=== PATIENT | female | born 1955 | race Hispanic/Latino ===

== ENCOUNTER → 2019-06-29 | Outpatient (CLI) | payer MEDICARE ==
[~2019-06-29] MED LIST: AMYL1CAP63 PO; ASPI-555 PO; BUPR150T8 PO; CALC0.253 PO; CHOL100053 PO; CYAN-35 PO; DENO60DI SQ; ESTRACE; FERR325T22 PO; FLUO40CA49 PO; INSU100I3 SQ; LEVO88TA4 PO; LOSA25TA41 PO; MAGN250T10 PO; NITR0.4T SL; OMEP-50 PO; ONDA4TAB4 PO; POLY17PO4 PO
== END | disposition home or self-care (01) ==
LOC: RAH 08:26
PROVIDERS: ATTEND Internal Medicine
DX: M25.551 Pain in right hip (principal); Z96.651 Presence of right artificial knee joint; Z98.1 Arthrodesis status
CPT/HCPCS: 73502; 73552

== ENCOUNTER 2019-07-14 09:49 | Observation (INO) | payer MEDICARE ==
[~2019-07-14] VITALS: Ht 149.9 cm; Wt 48.1 kg
[2019-07-14 10:09] LABS: BASOPHILS % (AUTO) 0.8 % (0.0-5.0); EOSINOPHILS % (AUTO) 2.3 % (0.0-8.0); HEMATOCRIT 37.2 % (36-48); LYMPHOCYTES % (AUTO) 21.6 % (21.0-51.0); MEAN CORPUSCULAR HGB CONC 33.7 g/dL (32.0-36.0); MEAN CORPUSCULAR VOLUME 91.8 fL (79-99); MONOCYTES % (AUTO) 7.2 % (3.0-13.0); NEUTROPHILS % (AUTO) 68.1 % (40.0-77.0); NUCLEATED RED BLOOD CELLS 0.1 % (0.0-0.19); PLATELET COUNT (AUTO) 220 K/uL (130-400); RED BLOOD CELL COUNT(AUTO) 4.05 MIL/uL (4.00-5.50); RED CELL DISTRIBUTION WIDTH 12.9 % (11.0-15.5); WHITE BLOOD COUNT (AUTO) 6.2 K/uL (4.8-10.8)
[2019-07-14] MEDS ORDERED: ONDANSETRON HCL 4 MG/2 ML VIAL ONE (10:20)
[2019-07-14] MEDS ORDERED: MORPHINE SULFATE 4 MG/1ML SYG ONE (10:21)
[2019-07-14] MEDS ORDERED: SODIUM CHLORIDE 0.9% 500ML 500 ML IV ONE ×2 (10:22→12:25)
[2019-07-14 10:26] LABS: CREATININE 1.1 mg/dL (0.5-1.5); POTASSIUM 3.8 mmol/L (3.5-5.1)
[2019-07-14 10:32] LABS: ALBUMIN 3.4 g/dL (3.5-5.0); BILIRUBIN,TOTAL 0.6 mg/dL (0.2-1.0)
[2019-07-14] MEDS ORDERED: HYDROMORPHONE 1 MG/1 ML AMP ONE (10:53)
[2019-07-14] MEDS ORDERED: KETOROLAC TROMETHAMINE 30MG/ML ONE (10:53)
[2019-07-14] MEDS ORDERED: LIDOCAINE HCL-MPF 1% 2ML VIAL IV PRN (13:00)
[2019-07-14] MEDS ORDERED: ONDANSETRON HCL 4 MG/2 ML VIAL IV PRN (13:00)
[2019-07-14] MEDS ORDERED: DiphenhydrAMINE HCL 50 MG/ML VIAL IV PRN (13:00)
[2019-07-14] MEDS ORDERED: KETOROLAC TROMETHAMINE 30MG/ML IV PRN (13:00)
[2019-07-14] MEDS ORDERED: DEXTROSE 50%-WATER 50 ML DISP.SYRIN IV PRN (13:00)
[2019-07-14] MEDS ORDERED: ONDANSETRON HCL 4 MG/2 ML VIAL IVP PRN (13:00)
[2019-07-14] MEDS ORDERED: SODIUM CHLORIDE 0.9% 1000ML 1,000 ML IV ONE (13:00)
[2019-07-14] MEDS ORDERED: GLUCAGON 1MG KIT 1 MG ML IM PRN (13:00)
[2019-07-14] MEDS ORDERED: MAG HYDROX/AL HYDROX/SIMETH ES 30 ML SUSP UDCUP PO PRN (13:00)
[2019-07-14] MEDS ORDERED: DIPHENHYDRAMINE HCL 25 MG CAPSULE PO PRN (13:00)
[2019-07-14] MEDS ORDERED: HYDROMORPHONE 1 MG/1 ML AMP IVP PRN (13:00)
[2019-07-14] MEDS ORDERED: ACETAMINOPHEN 325 MG TAB PO PRN ×2 (13:00)
[2019-07-14] MEDS ORDERED: SODIUM CHLORIDE 0.9% 1000ML 1,000 ML IV SCH (13:00)
[2019-07-14] MEDS ORDERED: POTASSIUM CHLORIDE 10% ELIXIR 20 MEQ/15 ML UDCUP PO PRN (13:00)
[2019-07-14] MEDS ORDERED: LACTULOSE 20 GM/30 ML UDCUP PO PRN (13:00)
[2019-07-14] MEDS ORDERED: POTASSIUM CHLORIDE 20MEQ/100ML 100 ML IV PRN (13:00)
[2019-07-14] MEDS ORDERED: POTASSIUM CHLORIDE 20 MEQ ERTAB PO PRN (13:00)
[2019-07-14] MEDS ORDERED: POLY17PO4 PO (13:05)
[2019-07-14] MEDS ORDERED: OMEP-50 PO (13:05)
[2019-07-14] MEDS ORDERED: MELO7.5T12 PO (13:05)
[2019-07-14] MEDS ORDERED: ESTRACE (13:05)
[2019-07-14] MEDS ORDERED: INSU100I3 SQ (13:08)
[2019-07-14 17:28] LABS: APPEARANCE,URINE Cloudy (CLEAR); BILIRUBIN,URINE Negative (NEGATIVE); COLOR,URINE Yellow (YELLOW); GLUCOSE, URINE (UA) Negative (NEGATIVE); KETONES,URINE Negative (NEGATIVE); LEUKOCYTE ESTERASE ,URINE Moderate (NEGATIVE); NITRATE,URINE Negative (NEGATIVE); OCCULT BLOOD,URINE Moderate (NEGATIVE); PROTEIN,URINE Negative (NEGATIVE); UROBILINOGEN,URINE 0.2 mg/dL (0.2-1.0)
[2019-07-14] MEDS ORDERED: INSULIN HUMULIN R 100 UNIT/ML 3ML ONE (17:37)
[2019-07-14 17:45] LABS: BACTERIA,URINE Rare /HPF (None Seen)
[2019-07-14] MEDS ORDERED: LIPASE/PROTEASE/AMYLASE 5000/17000/24000 PO SCH ×2 (17:45→18:15)
[2019-07-14] MEDS ORDERED: POLYETHYLENE GLYCOL 3350 17 GM POWD.PACK PO PRN (17:45)
[2019-07-14 17:46] LABS: SQUAMOUS EPITHELIAL CELL,UR Few /HPF (0-2)
[2019-07-14] MEDS ORDERED: CEFTRIAXONE SODIUM 1 GM IVP SCH (18:00)
[2019-07-14] MEDS ORDERED: ACETAMINOPHEN-CODEINE 300/30MG TAB PO PRN (18:00)
[2019-07-14] MEDS ORDERED: CEFTRIAXONE SODIUM 1 GM ONE (19:00)
[2019-07-14 19:35] VITALS: BP 125/78
[2019-07-14] MEDS: PANTOPRAZOLE SODIUM 40 MG TABLET.DR PO SCH (20:58)
[2019-07-14] MEDS: CALCITRIOL 0.25 MCG CAPSULE PO SCH (21:00)
[2019-07-14] MEDS: INSULIN HUMULIN R 100 UNIT/ML 3ML SQ SCH (21:00)
[2019-07-14 23:45] VITALS: BP 115/63
[2019-07-15 04:00] VITALS: BP 147/99
[2019-07-15 06:15] LABS: CREATININE 1.2 mg/dL (0.5-1.5); POTASSIUM 3.8 mmol/L (3.5-5.1)
[2019-07-15] MEDS ORDERED: LEVOTHYROXINE 88 MCG TABLET PO SCH (06:30)
[2019-07-15] MEDS: INSULIN HUMULIN R 100 UNIT/ML 3ML SQ SCH (07:30)
[2019-07-15 08:00] VITALS: BP 143/79
[2019-07-15] MEDS ORDERED: LIPASE/PROTEASE/AMYLASE 5000/17000/24000 PO SCH (08:00)
--- NOTE | 2019-07-15 08:21 | NUR ---
Dr. Messer paged;'for right ureteral calculi 7mm at [facility]
[2019-07-15] MEDS: CALCITRIOL 0.25 MCG CAPSULE PO SCH (08:59)
[2019-07-15] MEDS ORDERED: FLUOXETINE HCL 20 MG CAPSULE PO SCH (09:00)
[2019-07-15] MEDS ORDERED: BUPROPION HCL 150 MG TABLET.SA PO SCH (09:00)
[2019-07-15] MEDS: PANTOPRAZOLE SODIUM 40 MG TABLET.DR PO SCH (09:01)
--- NOTE | 2019-07-15 09:10 | NUR ---
DR. RAYO STATES OKAY TO D/C PT HOME MAKE F/U APPT WITH DR. DEAL, DONT WAIT FOR SAY JUST D/C PT HOME. RENAL STONE WAS SEND TO LAB.
[2019-07-15] MEDS ORDERED: TAMS-1 PO (09:53)
[2019-07-15] MEDS ORDERED: TYL3 PO (09:53)
[2019-07-15] MEDS ORDERED: CEPH500C2 PO (09:53)
[2019-07-15 11:00] VITALS: BP 154/71
--- NOTE | 2019-07-15 13:40 | NUR ---
PATIENT D/C HOME USING TEACH BACK TECHNIQUE RE; FOLLOW UP WITH DR. RAYO IN 2-3 DAYS. CALL TO SET UP AN APPOINTMENT WITH DR. DEAL IN 1-2 WEEKS. [phone] IF PAINFULS URINATION, CALL YOUR PRIMARY DOCTOR. IF URINATING BLOOD OR SEVER PAIN THAT DOES NOT RESOLVE WITH PAIN MEDICATION CALL 911 OR COME TO THE EMERGENCY ROOM. FINISH FULL COURSE OF ANTIBIOTICS TO PREVENT SUPER INFECTION. FOLLOW UP FOR RESULTS OF KIDNEY STONE THAT WAS COLLECTED AT [facility], AT DR. RAYO'S OFFICE AT THE DATE OF THE APPOINTMENT. IV OUT, INTACT, AAOX3, DENIES ANY PAIN OR DISCOMFORT, PATIENT WILL FOLLOW UP WITH DR. RAYO FOR RENAL STONE RESULTS. PRESCRIPTION GIVEN TO PATIENT FOR ANTIBIOTICS AND FLOMAX AND PAIN MED.
== END 2019-07-15 14:00 | disposition home or self-care (01) ==
LOC: EDH 09:49 → EDHIP 12:18 → 4BH 19:35
PROVIDERS: ADMIT Internal Medicine; ATTEND Internal Medicine
DX: N13.2 Hydronephrosis with renal and ureteral calculous obstruction (principal); G25.81 Restless legs syndrome; E10.43 Type 1 diabetes mellitus with diabetic autonomic (poly)neuropathy; E78.2 Mixed hyperlipidemia; F32.1 Major depressive disorder, single episode, moderate; H40.10X1 Unspecified open-angle glaucoma, mild stage; I25.10 Atherosclerotic heart disease of native coronary artery without angina pectoris; I25.2 Old myocardial infarction; K31.84 Gastroparesis; K21.9 Gastro-esophageal reflux disease without esophagitis; K44.9 Diaphragmatic hernia without obstruction or gangrene; K86.89 Other specified diseases of pancreas; M21.372 Foot drop, left foot; K56.609 Unspecified intestinal obstruction, unspecified as to partial versus complete obstruction; E31.21 Multiple endocrine neoplasia [MEN] type I; Z87.442 Personal history of urinary calculi; Z90.411 Acquired partial absence of pancreas; Z90.710 Acquired absence of both cervix and uterus; Z96.651 Presence of right artificial knee joint; Z96.41 Presence of insulin pump (external) (internal); Z90.49 Acquired absence of other specified parts of digestive tract; Z79.82 Long term (current) use of aspirin; Z79.890 Hormone replacement therapy; Z79.899 Other long term (current) drug therapy
CPT/HCPCS: 36415 ×2; 74176; 80048; 80053; 81001; 82360; 82948 ×3; 83690; 84484; 85025; 93005; 99284; G0378 ×25; J0696; J1170; J1815; J1885; J2270; J2405; J7030; J7040 ×2

== ENCOUNTER 2019-08-04 01:16 | Emergency (ER) | payer MEDICARE ==
[~2019-08-04 01:16] MED LIST changes: +CEPH500C2 PO; -INSU100I3 SQ; -ONDA4TAB4 PO; +TAMS-1 PO; +TYL3 PO
[2019-08-04 02:21] LABS: BILIRUBIN,URINE Negative (NEGATIVE); COLOR,URINE Yellow (YELLOW); GLUCOSE, URINE (UA) Negative (NEGATIVE); KETONES,URINE Negative (NEGATIVE); LEUKOCYTE ESTERASE ,URINE Trace (NEGATIVE); NITRATE,URINE Negative (NEGATIVE); OCCULT BLOOD,URINE Negative (NEGATIVE); PROTEIN,URINE Negative (NEGATIVE); UROBILINOGEN,URINE 0.2 mg/dL (0.2-1.0)
[2019-08-04 02:25] LABS: APPEARANCE,URINE SLIGHTLY CLOUDY (CLEAR)
[2019-08-04 02:41] LABS: BACTERIA,URINE None Seen /HPF (None Seen); RBC,URINE None Seen /HPF (0-1); WBC,URINE 0-1 /HPF (0-1)
[2019-08-04 02:42] LABS: CALCIUM OXALATE CRYSTALS,UR Moderate /LPF (None Seen); SQUAMOUS EPITHELIAL CELL,UR Rare /HPF (0-2)
[2019-08-04 02:46] LABS: BASOPHILS % (AUTO) 1.7 % (0.0-5.0); EOSINOPHILS % (AUTO) 3.6 % (0.0-8.0); HEMATOCRIT 38.5 % (36-48); LYMPHOCYTES % (AUTO) 23.1 % (21.0-51.0); MEAN CORPUSCULAR HGB CONC 33.6 g/dL (32.0-36.0); MEAN CORPUSCULAR VOLUME 92.4 fL (79-99); MONOCYTES % (AUTO) 6.5 % (3.0-13.0); NEUTROPHILS % (AUTO) 65.1 % (40.0-77.0); PLATELET COUNT (AUTO) 208 K/uL (130-400); RED BLOOD CELL COUNT(AUTO) 4.17 MIL/uL (4.00-5.50); RED CELL DISTRIBUTION WIDTH 12.7 % (11.0-15.5); WHITE BLOOD COUNT (AUTO) 5.9 K/uL (4.8-10.8)
[2019-08-04] MEDS ORDERED: KETOROLAC TROMETHAMINE 30MG/ML ONE (02:53)
[2019-08-04 02:59] LABS: ALBUMIN 3.9 g/dL (3.5-5.0); BILIRUBIN,TOTAL 0.4 mg/dL (0.2-1.0); CREATININE 1.2 mg/dL (0.5-1.5); TOTAL PROTEIN, SERUM 7.1 g/dL (6.0-8.3)
[2019-08-04 03:04] LABS: POTASSIUM 3.6 mmol/L (3.5-5.1)
[2019-08-04 03:09] LABS: INR 0.89 (0.85-1.15); PROTHROMBIN TIME 9.4 SEC (9.6-11.6)
[2019-08-04] MEDS ORDERED: METHYLPREDNISOLONE SOD SUCC 125MG/2ML VIAL ONE (03:21)
== END 2019-08-04 04:20 | disposition home or self-care (01) ==
LOC: EDH 01:16
DX: M79.651 Pain in right thigh (principal); E10.649 Type 1 diabetes mellitus with hypoglycemia without coma; I10 Essential (primary) hypertension; Z87.442 Personal history of urinary calculi; Z85.07 Personal history of malignant neoplasm of pancreas
CPT/HCPCS: 36415; 71045; 72100; 73502; 80053; 81001; 82550; 82948; 84484; 85025; 85610; 85730; 93005; 93971; 96374; 96375; 99285; J1885; J2930

== ENCOUNTER → 2019-09-18 | Outpatient (CLI) | payer MEDICARE | END | disposition home or self-care (01) | LOC: RAH 12:58 | PROVIDERS: ATTEND Urology | DX: N13.2 Hydronephrosis with renal and ureteral calculous obstruction (principal) | CPT/HCPCS: 74176 ==

== ENCOUNTER → 2019-09-26 | Outpatient (CLI) | payer MEDICARE ==
[~2019-09-26] MED LIST changes: +OMEP-298 PO; -OMEP-50 PO
== END | disposition home or self-care (01) ==
LOC: RAH 15:10
PROVIDERS: ATTEND Internal Medicine
DX: M54.5 Low back pain (principal); M79.651 Pain in right thigh
CPT/HCPCS: 72148; 73718

== ENCOUNTER → 2019-10-03 | Outpatient (CLI) | payer MEDICARE | END | disposition home or self-care (01) | LOC: RAH 14:40 | PROVIDERS: ATTEND Internal Medicine | DX: N20.0 Calculus of kidney (principal) | CPT/HCPCS: 74018; 76100 ==

== ENCOUNTER → 2019-10-13 | Outpatient (CLI) | payer MEDICARE | END | disposition home or self-care (01) | LOC: RAH 10:34 | PROVIDERS: ATTEND Internal Medicine | DX: N20.0 Calculus of kidney (principal) | CPT/HCPCS: 74018; 76100 ==

== ENCOUNTER 2019-10-31 05:53 | Day surgery (SDC) | payer MEDICARE ==
[2019-10-30 11:39] VITALS: BP 168/85
[2019-10-30 12:25] LABS: HEMATOCRIT 36.6 % (36-48); MEAN CORPUSCULAR HGB CONC 31.4 g/dL (32.0-36.0); MEAN CORPUSCULAR VOLUME 92.4 fL (79-99); PLATELET COUNT (AUTO) 222 K/uL (130-400); RED BLOOD CELL COUNT(AUTO) 3.96 MIL/uL (4.00-5.50); RED CELL DISTRIBUTION WIDTH 12.3 % (11.0-15.5)
[2019-10-30 12:29] LABS: APPEARANCE,URINE Clear (CLEAR); BILIRUBIN,URINE Negative (NEGATIVE); COLOR,URINE Yellow (YELLOW); GLUCOSE, URINE (UA) Negative (NEGATIVE); KETONES,URINE Negative (NEGATIVE); LEUKOCYTE ESTERASE ,URINE Small (NEGATIVE); NITRATE,URINE Negative (NEGATIVE); OCCULT BLOOD,URINE Negative (NEGATIVE); PH,URINE 5.5 (5.0-8.0); PROTEIN,URINE Trace mg/dL (NEGATIVE); UROBILINOGEN,URINE 0.2 mg/dL (0.2-1.0)
[2019-10-30 12:30] LABS: BACTERIA,URINE Rare /HPF (None Seen); RBC,URINE 0-1 /HPF (0-1); SQUAMOUS EPITHELIAL CELL,UR Rare /HPF (0-2)
[2019-10-30 12:41] LABS: CREATININE 1.1 mg/dL (0.5-1.5); INR 0.95 (0.85-1.15); PARTIAL THROMBOPLASTIN TIME 25.7 SEC (26.3-35.5); POTASSIUM 3.6 mmol/L (3.5-5.1)
--- NOTE | 2019-10-30 14:15 | NUR ---
RE: ABNORMAL URINALYSIS FAXED ABNORMAL URINALYSIS RESULTS TO DR DEAL'S OFFICE, RENNY VELASCO.
[~2019-10-31] VITALS: Ht 152.4 cm; Wt 46.4 kg
[2019-10-31] VITALS (19 sets, daily range): BP systolic 137–188; BP diastolic 60–106
[~2019-10-31 05:53] MED LIST changes: +AMYL1CAP61 PO; -AMYL1CAP63 PO; -ASPI-555 PO; -BUPR150T8 PO; +CEFAZOLIN SODIUM 1 GM VIAL IVP SCH; -CEPH500C2 PO; +CHOL100046 PO; -CHOL100053 PO; -CYAN-35 PO; -DENO60DI SQ; -ESTRACE; -FERR325T22 PO; +FISH1CAP20 PO; +FOLI0.8C PO; +LACTATED RINGERS 1000ML 1,000 ML IV SCH; -MAGN250T10 PO; -NITR0.4T SL; -OMEP-298 PO; +OMEP20CA12 PO; -POLY17PO4 PO; +PREG25 PO; -TYL3 PO; +calcium PO; +vitamin b12 PO
[2019-10-31] MEDS ORDERED: SCOPOLAMINE HYDROBROMIDE 1 EACH ADH..PATCH TD ONE (06:47)
[2019-10-31] MEDS ORDERED: SODIUM CHLORIDE 0.9% 1000ML 1,000 ML IV ONE (06:51)
[2019-10-31] MEDS ORDERED: NEOSTIGMINE 5MG/5ML SYR IV ONE (06:54)
[2019-10-31] MEDS ORDERED: LIDOCAINE PF 2% 5ML ABBOJECT ONE (06:54)
[2019-10-31] MEDS ORDERED: GLYCOPYRROLATE 1 MG/5 ML SYRINGE ONE (06:54)
[2019-10-31] MEDS ORDERED: SUCCINYLCHOLINE 200MG/10ML SYR ONE (06:54)
[2019-10-31] MEDS ORDERED: ONDANSETRON HCL 4 MG/2 ML VIAL ONE (06:54)
[2019-10-31] MEDS ORDERED: DEXAMETHASONE SOD PHOSPHATE 10MG/ML 1ML VIAL ONE (06:54)
[2019-10-31] MEDS ORDERED: PROPOFOL 10 MG/ML 20ML VIAL IV ONE (06:54)
[2019-10-31] MEDS ORDERED: FENTANYL CITRATE PF 50 MCG/1 ML 2ML VIAL ONE (06:55)
[2019-10-31] MEDS ORDERED: ROCURONIUM 10MG/1ML SYR 10 MG/ML ML ONE (06:55)
== END 2019-10-31 10:10 | disposition home or self-care (01) ==
LOC: DAH 05:53
PROVIDERS: ATTEND Urology
DX: N20.0 Calculus of kidney (principal); I10 Essential (primary) hypertension; K21.9 Gastro-esophageal reflux disease without esophagitis; E03.9 Hypothyroidism, unspecified; F32.9 Major depressive disorder, single episode, unspecified; Z79.84 Long term (current) use of oral hypoglycemic drugs; Z79.899 Other long term (current) drug therapy; Z90.710 Acquired absence of both cervix and uterus; Z98.890 Other specified postprocedural states; Z85.07 Personal history of malignant neoplasm of pancreas; Z82.49 Family history of ischemic heart disease and other diseases of the circulatory system; Z83.3 Family history of diabetes mellitus; Z82.3 Family history of stroke
CPT/HCPCS: 36415; 50590; 71046; 74018; 80048; 81001; 82948 ×2; 85027; 85610; 85730; 87088; 93005; A4215; A4221; A4222; A4223; A4663; J0330; J0690; J1100; J2001; J2405; J2704; J2710; J3490; J7030; J3010; J7120

== ENCOUNTER → 2019-11-14 | Outpatient (CLI) | payer MEDICARE ==
[~2019-11-14] MED LIST changes: -CEFAZOLIN SODIUM 1 GM VIAL IVP SCH; -LACTATED RINGERS 1000ML 1,000 ML IV SCH
== END | disposition home or self-care (01) ==
LOC: RAH 14:02
PROVIDERS: ATTEND Urology
DX: N28.89 Other specified disorders of kidney and ureter (principal); K59.00 Constipation, unspecified
CPT/HCPCS: 74018; 76100

== ENCOUNTER 2020-09-18 01:44 | Observation (INO) | payer MEDICARE ==
[2020-09-18] VITALS (19 sets, daily range): BP systolic 100–135; BP diastolic 51–79
[~2020-09-18] VITALS: Ht 149.9 cm; Wt 44.0 kg
[2020-09-18] MEDS ORDERED: HYDROMORPHONE 1 MG/1 ML AMP ONE ×2 (02:36→04:51)
[2020-09-18] MEDS ORDERED: ONDANSETRON HCL 4 MG/2 ML VIAL ONE ×2 (02:37→12:25)
[2020-09-18 02:53] LABS: BASOPHILS % (AUTO) 0.4 % (0.0-5.0); EOSINOPHILS % (AUTO) 1.3 % (0.0-8.0); HEMATOCRIT 37.7 % (36-48); LYMPHOCYTES % (AUTO) 16.5 % (21.0-51.0); MEAN CORPUSCULAR HGB CONC 32.1 g/dL (32.0-36.0); MEAN CORPUSCULAR VOLUME 90.4 fL (79-99); MONOCYTES % (AUTO) 5.7 % (3.0-13.0); NEUTROPHILS % (AUTO) 75.7 % (40.0-77.0); PLATELET COUNT (AUTO) 225 K/uL (130-400); RED BLOOD CELL COUNT(AUTO) 4.17 MIL/uL (4.00-5.50); RED CELL DISTRIBUTION WIDTH 12.2 % (11.0-15.5); WHITE BLOOD COUNT (AUTO) 11.3 K/uL (4.8-10.8)
[2020-09-18 02:56] LABS: CREATININE 1.3 mg/dL (0.5-1.5); CRP QUANTITATIVE 3.5 mg/L (0.00-9.0); POTASSIUM 3.5 mmol/L (3.5-5.1)
[2020-09-18] MEDS ORDERED: TAMSULOSIN HCL 0.4 MG CAP.ER.24H ONE ×2 (02:56→08:49)
[2020-09-18] MEDS ORDERED: PROCHLORPERAZINE EDISYLATE 10 MG/2 ML VIAL ONE (04:50)
[2020-09-18] MEDS ORDERED: SODIUM CHLORIDE 0.9% 50 ML IV ONE (04:51)
[2020-09-18] MEDS ORDERED: GLUCAGON 1MG KIT 1 MG ML IM PRN ×2 (06:30→07:45)
[2020-09-18] MEDS ORDERED: ONDANSETRON HCL 4 MG/2 ML VIAL IVP PRN (06:30)
[2020-09-18] MEDS ORDERED: SODIUM CHLORIDE 0.9% 1000ML 1,000 ML IV SCH ×2 (06:30→07:30)
[2020-09-18] MEDS ORDERED: DEXTROSE 50%-WATER 50 ML DISP.SYRIN IV PRN ×2 (06:30→07:45)
[2020-09-18] MEDS ORDERED: PROCHLORPERAZINE EDISYLATE 10 MG/2 ML VIAL IV PRN (06:30)
[2020-09-18] MEDS ORDERED: MORPHINE SULFATE 4 MG/1ML SYG IVP PRN (06:30)
[2020-09-18] MEDS ORDERED: ONDANSETRON HCL 4 MG/2 ML VIAL IV PRN (07:30)
[2020-09-18] MEDS ORDERED: ACETAMINOPHEN 325 MG TAB PO PRN ×2 (07:30)
[2020-09-18] MEDS ORDERED: DIPHENHYDRAMINE HCL 25 MG CAPSULE PO PRN (07:30)
[2020-09-18] MEDS ORDERED: MAG HYDROX/AL HYDROX/SIMETH ES 30 ML SUSP UDCUP PO PRN (07:30)
[2020-09-18] MEDS ORDERED: LACTULOSE 20 GM/30 ML UDCUP PO PRN (07:30)
[2020-09-18] MEDS: INSULIN R PO SS1 SQ SCH ×3 (07:30→16:30)
[2020-09-18] MEDS ORDERED: ACETAMINOPHEN-CODEINE 300/30MG TAB PO PRN ×2 (07:30)
[2020-09-18] MEDS ORDERED: HUMALOG PO SS1 SQ SCH (07:30)
[2020-09-18] MEDS ORDERED: DiphenhydrAMINE HCL 50 MG/ML VIAL IV PRN (07:30)
[2020-09-18] MEDS ORDERED: LIDOCAINE HCL-MPF 1% 2ML VIAL IM PRN (07:45)
[2020-09-18] MEDS ORDERED: POTASSIUM CHLORIDE 10MEQ/100ML 100 ML IV PRN (07:45)
[2020-09-18] MEDS ORDERED: POTASSIUM CHLORIDE 20MEQ/100ML 100 ML IV PRN (07:45)
[2020-09-18] MEDS ORDERED: POTASSIUM CHLORIDE 20 MEQ ERTAB PO PRN (07:45)
[2020-09-18] MEDS ORDERED: POTASSIUM CHLORIDE 10% ELIXIR 20 MEQ/15 ML UDCUP PO PRN (07:45)
[2020-09-18] MEDS ORDERED: LIPASE/PROTEASE/AMYLASE 5000/17000/24000 PO SCH (07:45)
[2020-09-18] MEDS ORDERED: OMEP20CA12 PO (08:44)
[2020-09-18] MEDS ORDERED: PREG25 PO (08:44)
[2020-09-18] MEDS ORDERED: PANTOPRAZOLE SODIUM 40 MG TABLET.DR ONE (08:49)
[2020-09-18] MEDS ORDERED: FOLIC ACID 1 MG TABLET ONE (08:49)
[2020-09-18] MEDS ORDERED: PREGABALIN 25 MG CAP ONE (08:50)
[2020-09-18] MEDS ORDERED: FAMOTIDINE/PF 20 MG/2 ML VIAL IV ONE (08:50)
[2020-09-18] MEDS ORDERED: NITR0.4T SL (08:52)
[2020-09-18] MEDS ORDERED: ESTR42.53 VG (08:52)
[2020-09-18] MEDS ORDERED: DENO60DI SQ (08:52)
[2020-09-18] MEDS ORDERED: AMYL1CAP61 PO (08:52)
[2020-09-18] MEDS ORDERED: FERR325T22 PO (08:52)
[2020-09-18] MEDS ORDERED: POLY17PO4 PO (08:52)
[2020-09-18] MEDS ORDERED: AEC81 PO (08:52)
[2020-09-18] MEDS ORDERED: CALCITRIOL 0.25 MCG CAPSULE PO SCH (09:00)
[2020-09-18] MEDS ORDERED: TAMSULOSIN HCL 0.4 MG CAP.ER.24H PO SCH ×2 (09:00)
[2020-09-18] MEDS ORDERED: **HM** VIT D3 25MCG PO SCH (09:00)
[2020-09-18] MEDS ORDERED: PANTOPRAZOLE SODIUM 40 MG TABLET.DR PO SCH (09:00)
[2020-09-18] MEDS ORDERED: FOLIC ACID 1 MG TABLET PO SCH (09:00)
[2020-09-18] MEDS ORDERED: LEVOTHYROXINE 88 MCG TABLET PO SCH (09:00)
[2020-09-18] MEDS ORDERED: FAMOTIDINE/PF 20 MG/2 ML VIAL IV SCH (09:00)
[2020-09-18] MEDS ORDERED: PREGABALIN 25 MG CAP PO SCH (09:00)
[2020-09-18] MEDS: FLUOXETINE HCL 20 MG CAPSULE PO SCH (09:00)
[2020-09-18] MEDS ORDERED: INSULIN HUMULIN R 100 UNIT/ML 3ML SQ SCH (11:30)
[2020-09-18] MEDS ORDERED: MORPHINE SULFATE 4 MG/1ML SYG IV PRN (12:15)
[2020-09-18] MEDS ORDERED: DEXAMETHASONE SOD PHOSPHATE 10MG/ML 1ML VIAL ONE (12:24)
[2020-09-18] MEDS ORDERED: SUCCINYLCHOLINE 200MG/10ML SYR ONE (12:24)
[2020-09-18] MEDS ORDERED: LIDOCAINE PF 2% 5ML ABBOJECT ONE (12:24)
[2020-09-18] MEDS ORDERED: NEOSTIGMINE 5MG/5ML SYR IV ONE (12:25)
[2020-09-18] MEDS ORDERED: ROCURONIUM 10MG/1ML SYR 10 MG/ML ML ONE (12:25)
[2020-09-18] MEDS ORDERED: MIDAZOLAM HCL 1 MG/ML 2ML VIAL ONE (12:25)
[2020-09-18] MEDS ORDERED: GLYCOPYRROLATE 1 MG/5 ML SYRINGE ONE (12:25)
[2020-09-18] MEDS ORDERED: PROPOFOL 10 MG/ML 20ML VIAL IV ONE (12:25)
[2020-09-18] MEDS ORDERED: FENTANYL CITRATE PF 50 MCG/1 ML 2ML VIAL ONE (12:26)
[2020-09-18] MEDS: CEFTRIAXONE SODIUM 1 GM IVP SCH ×2 (12:45→14:00)
[2020-09-18] MEDS ORDERED: IOHEXOL-350 50ML VIAL IV ONE (13:23)
--- NOTE | 2020-09-18 13:54 | NUR ---
ABRAN LOPEZ Spoke with patient's HUSBAD DIAMOND FERRARO ([phone]). As per Mr Ferraro, patient lives at home with him, was independent prior to admission, has a walker with no other DME or home services. Mr Ferraro feels safe for patient to be discharged home. Mr Ferraro to transport patient home via private vehicle. CM to follow up. Addendum: 09/18/20 at 1356 by SIMA VEGA Amended: Links added.
[2020-09-18] MEDS ORDERED: ACET1TAB25 PO (17:11)
[2020-09-18] MEDS ORDERED: TAMS-1 PO (17:11)
[2020-09-18] MEDS ORDERED: CEPH500C2 PO (17:11)
[2020-09-18] MEDS ORDERED: INSULIN PUMP INJ (17:22)
--- NOTE | 2020-09-18 18:11 | NUR ---
DISCHARGE DISCHARGE INSTRUCTIONS GIVEN TO PATIENT,VERBALIZED UNDERSTANDING. IV REMOVED. TELEPAK DISCONTINUED.
== END 2020-09-18 18:11 | disposition home or self-care (01) ==
LOC: EDH 01:44 → EDHIP 06:05 → 4CH 10:35
PROVIDERS: ADMIT Internal Medicine; ATTEND Internal Medicine
DX: N13.2 Hydronephrosis with renal and ureteral calculous obstruction (principal); Z20.828 Contact with and (suspected) exposure to other viral communicable diseases; K44.9 Diaphragmatic hernia without obstruction or gangrene; K21.9 Gastro-esophageal reflux disease without esophagitis; E10.43 Type 1 diabetes mellitus with diabetic autonomic (poly)neuropathy; K31.84 Gastroparesis; F32.1 Major depressive disorder, single episode, moderate; G25.81 Restless legs syndrome; H40.10X1 Unspecified open-angle glaucoma, mild stage; I10 Essential (primary) hypertension; I25.10 Atherosclerotic heart disease of native coronary artery without angina pectoris; I25.2 Old myocardial infarction; M21.372 Foot drop, left foot; Z79.4 Long term (current) use of insulin; Z79.82 Long term (current) use of aspirin; Z79.890 Hormone replacement therapy; Z79.899 Other long term (current) drug therapy; Z87.442 Personal history of urinary calculi; Z90.411 Acquired partial absence of pancreas; Z90.710 Acquired absence of both cervix and uterus; Z96.651 Presence of right artificial knee joint; Z85.07 Personal history of malignant neoplasm of pancreas
CPT/HCPCS: 36415; 52356; 74018; 74150; 74176; 80048; 82360; 82948 ×2; 85025; 86140; 87426; 93005; 99285; A4354; A4358; A6207; C1758; C1769 ×2; C2617; G0378 ×12; J0330; J0696; J0780; J1100; J1170 ×2; J2001; J2250; J2405 ×2; J2704; J2710; J3010; J3490 ×2; J7030; U0003; Q9967

== ENCOUNTER 2021-04-02 11:39 | Emergency (ER) | payer MEDICARE ==
[~2021-04-02] VITALS: Ht 149.9 cm; Wt 42.6 kg
[~2021-04-02 11:39] MED LIST changes: +ACET1TAB25 PO; +AEC81 PO; +CEPH500C2 PO; -CHOL100046 PO; +DENO60DI SQ; +ESTR42.53 VG; +FERR325T22 PO; -FISH1CAP20 PO; -FOLI0.8C PO; +INSULIN PUMP INJ; +NITR0.4T SL; +POLY17PO4 PO; -PREG25 PO; -calcium PO
[2021-04-02 12:10] VITALS: BP 140/93
[2021-04-02 12:13] LABS: BILIRUBIN,URINE Negative (NEGATIVE); COLOR,URINE Yellow (YELLOW); GLUCOSE, URINE (UA) Negative (NEGATIVE); KETONES,URINE Negative (NEGATIVE); LEUKOCYTE ESTERASE ,URINE Negative (NEGATIVE); NITRATE,URINE Negative (NEGATIVE); OCCULT BLOOD,URINE Small (NEGATIVE); PROTEIN,URINE Trace mg/dL (NEGATIVE); UROBILINOGEN,URINE 0.2 mg/dL (0.2-1.0)
[2021-04-02 12:16] LABS: APPEARANCE,URINE SLIGHTLY CLOUDY (CLEAR)
[2021-04-02 12:22] LABS: BACTERIA,URINE None Seen /HPF (None Seen); WBC,URINE 0-1 /HPF (0-1)
[2021-04-02] MEDS ORDERED: KETOROLAC 15MG/ML VIAL (15MG/ML) IV SCH (12:30)
[2021-04-02] MEDS ORDERED: 0.9%NACL 1000ML 1,000 ML IV SCH (12:30)
[2021-04-02 12:43] LABS: BASOPHILS % (AUTO) 0.6 % (0.0-5.0); EOSINOPHILS % (AUTO) 1.9 % (0.0-8.0); HEMATOCRIT 32.6 % (36-48); LYMPHOCYTES % (AUTO) 13.7 % (21.0-51.0); MEAN CORPUSCULAR HEMOGLOBIN 28.6 pg (27.0-33.0); MEAN CORPUSCULAR HGB CONC 31.6 g/dL (32.0-36.0); MEAN CORPUSCULAR VOLUME 90.6 fL (79-99); MONOCYTES % (AUTO) 8.7 % (3.0-13.0); NEUTROPHILS % (AUTO) 74.8 % (40.0-77.0); PLATELET COUNT (AUTO) 212 K/uL (130-400); RED CELL DISTRIBUTION WIDTH 13.8 % (11.0-15.5); WHITE BLOOD COUNT (AUTO) 6.8 K/uL (4.8-10.8)
[2021-04-02] MEDS ORDERED: 0.9%NACL 1000ML 1,000 ML IV ONE (12:43)
[2021-04-02 12:55] LABS: CREATININE 1.1 mg/dL (0.5-1.5); POTASSIUM 3.9 mmol/L (3.5-5.1)
[2021-04-02 12:59] LABS: ALBUMIN 3.1 g/dL (3.5-5.0); BILIRUBIN,TOTAL 0.4 mg/dL (0.2-1.0); TOTAL PROTEIN, SERUM 6.4 g/dL (6.0-8.3)
[2021-04-02 13:17] VITALS: BP 140/68
[2021-04-02] MEDS ORDERED: ONDANSETRON 4MG INJ IVP ONE (15:15)
[2021-04-02] MEDS ORDERED: MORPHINE 4 MG SYG IM ONE (15:15)
[2021-04-02 15:46] VITALS: BP 122/55
[2021-04-02] MEDS ORDERED: CEPH250C2 PO (15:56)
[2021-04-02] MEDS ORDERED: ACET1TAB25 PO (15:56)
[2021-04-02] MEDS ORDERED: TAMS-1 PO (15:56)
[2021-04-02] MEDS ORDERED: TAMSULOSIN HCL 0.4 MG CAP.ER.24H PO SCH (16:00)
[2021-04-02 16:40] VITALS: BP 129/81
== END 2021-04-02 16:41 | disposition home or self-care (01) ==
LOC: EDH 11:39
DX: N20.9 Urinary calculus, unspecified (principal); E11.9 Type 2 diabetes mellitus without complications; E86.0 Dehydration; Z79.82 Long term (current) use of aspirin; Z87.442 Personal history of urinary calculi; Z98.890 Other specified postprocedural states
CPT/HCPCS: 36415; 74176; 80053; 81001; 83690; 85025; 96361; 96374; 96375; 99285; J1885; J2405; J7030

== ENCOUNTER → 2022-01-08 | Outpatient (CLI) | payer MEDICARE ==
[~2022-01-08] MED LIST changes: +CEPH250C2 PO
== END | disposition home or self-care (01) ==
LOC: RAH 16:30
PROVIDERS: ATTEND Internal Medicine
DX: G51.8 Other disorders of facial nerve (principal); R68.84 Jaw pain
CPT/HCPCS: 70100; 70150

== ENCOUNTER → 2022-12-01 | Outpatient (CLI) | payer MEDICARE ==
[~2022-12-01] MED LIST changes: +ACET-2079 PO; -ACET1TAB25 PO
[2022-12-02 13:35] LABS: BASOPHILS % (AUTO) 0.6 % (0.0-5.0); EOSINOPHILS % (AUTO) 2.5 % (0.0-8.0); HEMATOCRIT 35.1 % (36-48); LYMPHOCYTES % (AUTO) 26.1 % (21.0-51.0); MEAN CORPUSCULAR HEMOGLOBIN 29.8 pg (27.0-33.0); MEAN CORPUSCULAR HGB CONC 31.3 g/dL (32.0-36.0); MEAN CORPUSCULAR VOLUME 95.1 fL (79-99); MONOCYTES % (AUTO) 8.3 % (3.0-13.0); NEUTROPHILS % (AUTO) 62.3 % (40.0-77.0); PLATELET COUNT (AUTO) 198 K/uL (130-400); RED BLOOD CELL COUNT(AUTO) 3.69 MIL/uL (4.00-5.50); RED CELL DISTRIBUTION WIDTH 12.8 % (11.0-15.5); WHITE BLOOD COUNT (AUTO) 5.2 K/uL (4.8-10.8)
[2022-12-02 13:47] LABS: CREATININE 0.9 mg/dL (0.5-1.5); POTASSIUM 3.4 mmol/L (3.5-5.1); TOTAL PROTEIN, SERUM 6.2 g/dL (6.0-8.3)
== END | disposition home or self-care (01) ==
LOC: LAB 10:35
PROVIDERS: ATTEND Internal Medicine Cardiovascular Disease
DX: E11.59 Type 2 diabetes mellitus with other circulatory complications (principal); R42 Dizziness and giddiness
CPT/HCPCS: 36415; 80053; 80061; 85025

== ENCOUNTER → 2022-12-30 | Outpatient (CLI) | payer OTHER | END | disposition home or self-care (01) | LOC: RAH 12:49 | PROVIDERS: ATTEND Internal Medicine Cardiovascular Disease | DX: Z13.6 Encounter for screening for cardiovascular disorders (principal); R93.1 Abnormal findings on diagnostic imaging of heart and coronary circulation | CPT/HCPCS: 75571 ==

== ENCOUNTER 2023-06-25 02:09 | Emergency (ER) | payer MEDICARE ==
[~2023-06-25] VITALS: Ht 149.9 cm; Wt 44.5 kg
[2023-06-25 02:11] VITALS: BP 172/82
[2023-06-25] MEDS ORDERED: ACETAMINOPHEN 500 MG TABLET ONE (02:40)
[2023-06-25] MEDS ORDERED: 0.9%NACL 1000ML 1,000 ML IV ONE (02:40)
[2023-06-25] MEDS ORDERED: 0.9%NACL 1000ML 1,000 ML IV STA (02:42)
[2023-06-25] MEDS ORDERED: ACETAMINOPHEN 500 MG TABLET PO STA (02:42)
[2023-06-25 02:46] LABS: BASOPHILS # (AUTO) 0.03 K/uL (0.00-0.20); BASOPHILS % (AUTO) 0.4 % (0.0-5.0); EOSINOPHILS # (AUTO) 0.44 K/uL (0.00-0.70); EOSINOPHILS % (AUTO) 5.3 % (0.0-8.0); HEMATOCRIT 33.4 % (36-48); IMMATURE GRANULOCYTE ABSOLUTE 0.02 K/uL (0-1); LYMPHOCYTES # (AUTO) 1.2 K/uL (1.0-4.8); LYMPHOCYTES % (AUTO) 14.1 % (21.0-51.0); MEAN CORPUSCULAR HEMOGLOBIN 28.1 pg (27.0-33.0); MEAN CORPUSCULAR HGB CONC 31.7 g/dL (32.0-36.0); MEAN CORPUSCULAR VOLUME 88.6 fL (79-99); MONOCYTES # (AUTO) 0.7 K/uL (0.1-1.0); PLATELET COUNT (AUTO) 177 K/uL (130-400); RED BLOOD CELL COUNT(AUTO) 3.77 MIL/uL (4.00-5.50); RED CELL DISTRIBUTION WIDTH 13.6 % (11.0-15.5); WHITE BLOOD COUNT (AUTO) 8.4 K/uL (4.8-10.8)
[2023-06-25] MEDS ORDERED: MORPHINE 4 MG SYG ONE (02:59)
[2023-06-25] MEDS ORDERED: ACETAMINOPHEN 500 MG TABLET PO ONE (03:00)
[2023-06-25] MEDS ORDERED: ONDANSETRON 4MG INJ IVP ONE (03:00)
[2023-06-25] MEDS ORDERED: MORPHINE 4 MG SYG IVP ONE (03:00)
[2023-06-25 03:01] LABS: ALBUMIN 3.4 g/dL (3.5-5.0); BILIRUBIN,TOTAL 0.5 mg/dL (0.2-1.0); CREATININE 1.9 mg/dL (0.5-1.5); POTASSIUM 3.9 mmol/L (3.5-5.1); TOTAL PROTEIN, SERUM 6.9 g/dL (6.0-8.3)
[2023-06-25 03:47] VITALS: TEMP 98.7
[2023-06-25 03:58] LABS: APPEARANCE,URINE CLEAR (CLEAR); BILIRUBIN,URINE NEGATIVE (NEGATIVE); GLUCOSE, URINE (UA) 30 mg/dL (NEGATIVE); KETONES,URINE 5 mg/dL (NEGATIVE); LEUKOCYTE ESTERASE ,URINE NEGATIVE Leu/uL (NEGATIVE); NITRATE,URINE NEGATIVE (NEGATIVE); PH,URINE 5.5 (5.0-8.0); PROTEIN,URINE NEGATIVE (NEGATIVE); UROBILINOGEN,URINE 0.2 mg/dL (0.2-1.0)
[2023-06-25 04:00] LABS: ADD UA MICROSCOPIC YES; COLOR,URINE Light-Yellow (YELLOW)
[2023-06-25 04:01] LABS: MUCUS,URINE RARE LPF (None Seen); SQUAMOUS EPITHELIAL CELL,UR RARE /HPF (0-2)
[2023-06-25 05:27] VITALS: PULSE 89; RESP 20; O2SAT 99
[2023-06-25] MEDS ORDERED: TAMS-1 PO (06:26)
[2023-06-25] MEDS ORDERED: IBUP-1493 PO (06:26)
[2023-06-25] MEDS ORDERED: MORPHINE 2 MG SYG ONE (06:44)
== END 2023-06-25 06:51 | disposition home or self-care (01) ==
LOC: EDH 02:09
DX: N23 Unspecified renal colic (principal); N20.1 Calculus of ureter; E11.9 Type 2 diabetes mellitus without complications; I10 Essential (primary) hypertension; K21.9 Gastro-esophageal reflux disease without esophagitis; Z79.4 Long term (current) use of insulin; Z79.82 Long term (current) use of aspirin; Z79.890 Hormone replacement therapy; Z79.899 Other long term (current) drug therapy; Z85.07 Personal history of malignant neoplasm of pancreas
CPT/HCPCS: 99285; 74176; 96374; 96361; 96375; 80053; 85025; 87040 ×2; 83605; 81001; 36415; 96376; J2270 ×2; J7030; J2405

== ENCOUNTER 2024-03-03 00:57 | Emergency (ER) | payer MEDICARE ==
[~2024-03-03] VITALS: Ht 149.9 cm; Wt 43.3 kg
[~2024-03-03 00:57] MED LIST changes: +IBUP-1493 PO
[2024-03-03 01:21] LABS: BASOPHILS # (AUTO) 0.03 K/uL (0.00-0.20); BASOPHILS % (AUTO) 0.6 % (0.0-5.0); EOSINOPHILS # (AUTO) 0.13 K/uL (0.00-0.70); EOSINOPHILS % (AUTO) 2.5 % (0.0-8.0); HEMATOCRIT 31.3 % (36-48); IMMATURE GRANULOCYTE ABSOLUTE 0.01 K/uL (0-1); LYMPHOCYTES # (AUTO) 1.3 K/uL (1.0-4.8); LYMPHOCYTES % (AUTO) 25.1 % (21.0-51.0); MEAN CORPUSCULAR HEMOGLOBIN 27.3 pg (27.0-33.0); MEAN CORPUSCULAR HGB CONC 31.9 g/dL (32.0-36.0); MEAN CORPUSCULAR VOLUME 85.5 fL (79-99); MONOCYTES # (AUTO) 0.5 K/uL (0.1-1.0); MONOCYTES % (AUTO) 9.6 % (3.0-13.0); NEUTROPHILS # (AUTO) 3.2 K/uL (1.8-7.7); PLATELET COUNT (AUTO) 187 K/uL (130-400); RED BLOOD CELL COUNT(AUTO) 3.66 MIL/uL (4.00-5.50); RED CELL DISTRIBUTION WIDTH 15.1 % (11.0-15.5); WHITE BLOOD COUNT (AUTO) 5.2 K/uL (4.8-10.8)
[2024-03-03 01:30] LABS: CREATININE 1.3 mg/dL (0.5-1.0); POTASSIUM 3.9 mmol/L (3.5-5.1)
[2024-03-03 01:34] LABS: BILIRUBIN,TOTAL 0.3 mg/dL (0.2-1.0); TOTAL PROTEIN, SERUM 6.4 g/dL (6.0-8.3)
[2024-03-03] MEDS: 0.9%NACL 1000ML 1,000 ML IV ONE (01:39)
[2024-03-03] MEDS: ONDANSETRON 4MG INJ ONE (02:23)
[2024-03-03] MEDS: KETOROLAC 30MG VIAL (30MG/ML) IVP ONE (02:24)
[2024-03-03] MEDS: TAMSULOSIN HCL 0.4 MG CAP.ER.24H PO ONE (02:24)
[2024-03-03] MEDS: ONDANSETRON 4MG INJ IVP ONE (02:24)
[2024-03-03 04:17] VITALS: BP 136/66; PULSE 70; RESP 18; O2SAT 99
[2024-03-03] MEDS ORDERED: CEPH500B PO (04:57)
[2024-03-03] MEDS ORDERED: KETO10 PO (04:57)
[2024-03-03] MEDS ORDERED: TAMS-1 PO (04:57)
[2024-03-03 05:06] LABS: APPEARANCE,URINE CLEAR (CLEAR); BILIRUBIN,URINE NEGATIVE (NEGATIVE); COLOR,URINE LIGHT-YELLOW (YELLOW); GLUCOSE, URINE (UA) 200 mg/dL (NEGATIVE); KETONES,URINE NEGATIVE (NEGATIVE); LEUKOCYTE ESTERASE ,URINE NEGATIVE Leu/uL (NEGATIVE); NITRATE,URINE NEGATIVE (NEGATIVE); OCCULT BLOOD,URINE SMALL (NEGATIVE); PH,URINE 5.5 (5.0-8.0); PROTEIN,URINE NEGATIVE (NEGATIVE); UROBILINOGEN,URINE 0.2 mg/dL (0.2-1.0)
[2024-03-03 05:45] LABS: BACTERIA,URINE None Seen /HPF (None Seen); RBC,URINE 0-1 /HPF (0-1); SQUAMOUS EPITHELIAL CELL,UR Rare /HPF (0-2); WBC,URINE 0-1 /HPF (0-1)
[2024-03-08] MEDS ORDERED: ERGO500093 PO (16:17)
[2024-03-08] MEDS ORDERED: PANT40TA54 PO (16:17)
[2024-03-08] MEDS ORDERED: AMYL1CAP63 PO ×2 (16:17)
[2024-03-08] MEDS ORDERED: INSULIN ASPART SQ (16:17)
[2024-03-08] MEDS ORDERED: LEVO100C4 PO (16:17)
== END 2024-03-03 05:12 | disposition home or self-care (01) ==
LOC: EDH 00:57
DX: N13.2 Hydronephrosis with renal and ureteral calculous obstruction (principal); E11.9 Type 2 diabetes mellitus without complications; I10 Essential (primary) hypertension; Z79.1 Long term (current) use of non-steroidal anti-inflammatories (NSAID); Z79.4 Long term (current) use of insulin; Z79.82 Long term (current) use of aspirin; Z79.890 Hormone replacement therapy; Z79.899 Other long term (current) drug therapy; Z90.49 Acquired absence of other specified parts of digestive tract; Z90.710 Acquired absence of both cervix and uterus
CPT/HCPCS: 99285; 74176; 96374; 96361; 96375; 80053; 85025; 81001; 36415; J7030; J2405; J1885

== ENCOUNTER 2025-03-31 23:36 | Emergency (ER) | payer MEDICARE ==
[~2025-03-31] VITALS: Ht 149.9 cm; Wt 42.2 kg
[~2025-03-31 23:36] MED LIST changes: -ACET-2079 PO; -AEC81 PO; -AMYL1CAP61 PO; +AMYL1CAP63 PO; -CEPH250C2 PO; -CEPH500C2 PO; -DENO60DI SQ; +ERGO500093 PO; -ESTR42.53 VG; -FERR325T22 PO; -IBUP-1493 PO; +INSULIN ASPART SQ; -INSULIN PUMP INJ; +LEVO100C5 PO; -LEVO88TA4 PO; -NITR0.4T SL; -OMEP20CA12 PO; +PANT40TA54 PO; -POLY17PO4 PO; -TAMS-1 PO; +TAMS-55 PO; -vitamin b12 PO
[2025-04-01 00:04] LABS: BASOPHILS # (AUTO) 0.02 K/uL (0.00-0.20); BASOPHILS % (AUTO) 0.2 % (0.0-5.0); EOSINOPHILS # (AUTO) 0.19 K/uL (0.00-0.70); EOSINOPHILS % (AUTO) 2.3 % (0.0-8.0); HEMATOCRIT 36.5 % (36-48); IMMATURE GRANULOCYTE ABSOLUTE 0.05 K/uL (0-1); LYMPHOCYTES # (AUTO) 1.4 K/uL (1.0-4.8); LYMPHOCYTES % (AUTO) 16.6 % (21.0-51.0); MEAN CORPUSCULAR HEMOGLOBIN 31.8 pg (27.0-33.0); MEAN CORPUSCULAR HGB CONC 33.2 g/dL (32.0-36.0); MEAN CORPUSCULAR VOLUME 95.8 fL (79-99); MONOCYTES # (AUTO) 0.6 K/uL (0.1-1.0); MONOCYTES % (AUTO) 7.6 % (3.0-13.0); NEUTROPHILS # (AUTO) 5.9 K/uL (1.8-7.7); NEUTROPHILS % (AUTO) 72.7 % (40.0-77.0); PLATELET COUNT (AUTO) 193 K/uL (130-400); RED BLOOD CELL COUNT(AUTO) 3.81 MIL/uL (4.00-5.50); RED CELL DISTRIBUTION WIDTH 12.5 % (11.0-15.5); WHITE BLOOD COUNT (AUTO) 8.1 K/uL (4.8-10.8)
[2025-04-01 00:11] LABS: APPEARANCE,URINE CLEAR (CLEAR); BILIRUBIN,URINE NEGATIVE (NEGATIVE); COLOR,URINE LIGHT-YELLOW (YELLOW); GLUCOSE, URINE (UA) NEGATIVE (NEGATIVE); KETONES,URINE NEGATIVE (NEGATIVE); LEUKOCYTE ESTERASE ,URINE 250 Leu/uL (NEGATIVE); NITRATE,URINE NEGATIVE (NEGATIVE); OCCULT BLOOD,URINE NEGATIVE (NEGATIVE); PH,URINE 5.5 (5.0-8.0); PROTEIN,URINE NEGATIVE (NEGATIVE); UROBILINOGEN,URINE 0.2 mg/dL (0.2-1.0)
[2025-04-01 00:12] LABS: POTASSIUM 3.8 mmol/L (3.5-5.1)
[2025-04-01 00:13] LABS: ADD UA MICROSCOPIC YES
[2025-04-01 00:14] LABS: BACTERIA,URINE FEW /HPF (None Seen); SQUAMOUS EPITHELIAL CELL,UR RARE /HPF (0-2)
[2025-04-01 00:16] LABS: ALBUMIN 3.3 g/dL (3.5-5.0); BILIRUBIN,TOTAL 0.5 mg/dL (0.2-1.0); TOTAL PROTEIN, SERUM 6.6 g/dL (6.0-8.3)
--- NOTE | 2025-04-01 01:34 | ERN ---
General Chief Complaint: Abdominal Pain Stated Complaint: ABDOMINAL PAIN Time Seen by MD: 23:58 Source: patient History of Present Illness Initial Comments Patient is describing some unusual symptoms where she gets abdominal pain in her right upper quadrant which then migrates over to her left upper quadrant and then down to her left lower quadrant. The pain is mild and started resolving on its own and in fact it is almost gone at this point. Patient does have complex abdominal surgical past. With partial small-bowel resection secondary to a volvulus near total pancreatectomy from pancreatic cancer. She has had kidney stones in the past as well. The pain she is having now does not feel like any of the pain she has had prior with her various surgeries and kidney stones. Timing/Duration: 24 hours Allergies: Coded Allergies: No Known Drug Allergies (Verified Allergy, 12/03/12) Home Meds Active Scripts Tamsulosin HCl (Flomax) 0.4 Mg Cap.er.24h, 0.4 MG PO DAILY for 7 Days, #[address].DR Prov:PROSPER LEWIS MD 03/03/24 Reported Medications [Fiasp To Pump] No Conflict Check, SQ AD 03/08/24 Levothyroxine Sodium (Levothyroxine) 100 Mcg Capsule, 100 MCG PO AM, CAP 03/08/24 Pantoprazole Sodium (Pantoprazole Sodium) 40 Mg Tablet.dr, 40 MG PO AM, TAB 03/08/24 Ergocalciferol (Vitamin D2) (Vitamin D2) 1,250 Mcg (07779 Unit) Capsule, 1250 MCG PO WEEKLY, CAP 03/08/24 Lipase/Protease/Amylase (Heidy Benjamin 24,000 Units Capsule) 24-76-120K Capsule.dr, 2 EACH PO AD, CAP 03/08/24 Lipase/Protease/Amylase (Heidy Benjamin 24,000 Units Capsule) 24-76-120K Capsule.dr, 5 EACH PO TID, CAP 03/08/24 Losartan Potassium (Losartan Potassium) 25 Mg Tablet, 25 MG PO DAILY, TAB 10/30/19 Calcitriol (Calcitriol) 0.25 Mcg Capsule, 0.25 MCG PO BID, CAP 10/30/19 Fluoxetine HCl (Fluoxetine HCl) 40 Mg Capsule, 40 MG PO DAILY, CAP 10/30/19 Past Medical History Past Medical History: Diabetes-Type II, Hypertension, Kidney Stone, Other Medical History Other: PANCREATIC CANCER Past Surgical History: Other Surgical History Other: NEAR COMPLETE REMOVEAL OF PANCREASE, BOWEL RESECTION, BACK SX, RIGHT KNEE Family History Family History: Negative Social History Social History: Negative Constitutional: (-) chills, (-) diaphoresis, (-) fever, (-) malaise, (-) weakness, (-) other documentation EENTM: (-) eye pain, (-) blurred vision, (-) tearing, (-) double vision, (-) ear pain, (-) ear discharge, (-) nose pain, (-) nose congestion, (-) throat pain, (-) Throat swelling, (-) mouth pain, (-) tooth pain, (-) mouth swelling, (-) other documentation Respiratory: (-) cough, (-) orthopnea, (-) short of breath, (-) stridor, (-) wheezing, (-) other documentation Cardiovascular: (-) chest pain, (-) edema, (-) palpitations, (-) syncope, (-) dyspnea on exertion, (-) other documentation Gastrointestinal/Abdominal: (-) nausea, (-) vomiting, (-) diarrhea, (-) abdominal pain, (-) abdominal distention, (-) constipation, (-) rectal bleeding, (-) dark stool/melena, (-) other documentation Genitourinary: (-) vaginal discharge, (-) vaginal bleeding, (-) dysuria, (-) frequency, (-) hematuria, (-) pain, (-) other documentation Musculoskeletal: (-) Neck pain, (-) back pain, (-) Flank Pain, (-) joint pain, (-) joint swelling, (-) muscle pain, (-) muscle stiffness, (-) gout, (-) other documentation Skin: (-) laceration, (-) contusion, (-) abrasion, (-) abscess, (-) rash, (-) change in color, (-) change in hair, (-) change in nails, (-) diaphoresis, (-) dryness, (-) other documentation Neuro: (-) altered mental status, (-) headache, (-) syncope, (-) paralysis, (-) numbness, (-) seizure, (-) pre-existing deficit, (-) tremors, (-) weakness, (-) dizziness, (-) slurred speech, (-) vertigo, (-) other documentation Physical Exam General Appearance: (+) no apparent distress Orientation: (+) alert Head/Face Trauma: No Eye: bilateral eye normal inspection, bilateral eye PERRL, bilateral eye EOMI Ear, Nose, Throat: (+) hearing grossly normal, (+) normal ENT inspection Neck: (+) normal inspection, (+) supple Respiratory: (+) chest non-tender, (+) lungs clear Heart: (+) regular, (+) no gallop Vascular: (+) no edema, (+) normal peripheral pulse Gastrointestinal: (+) soft, (+) non-tender, (+) bowel sound present Results Laboratory and Microbiology Lab and Micro Result Laboratory Tests Test 03/31/25 23:39 03/31/25 23:57 Urine Color LIGHT-YELLOW (YELLOW) Urine Appearance CLEAR (CLEAR) Urine pH 5.5 (5.0-8.0) Urine Specific [place] 1.020 (1.001-1.031) Urine Protein NEGATIVE mg/dL (NEGATIVE) Urine Glucose (UA) NEGATIVE mg/dL (NEGATIVE) Urine Ketones NEGATIVE mg/dL (NEGATIVE) Urine Occult Blood NEGATIVE (NEGATIVE) Urine Nitrate NEGATIVE (NEGATIVE) Urine Bilirubin NEGATIVE mg/dL (NEGATIVE) Urine Urobilinogen 0.2 mg/dL (0.2-1.0) Urine Leukocyte Esterase 250 [place]/uL (NEGATIVE) H Urine RBC 11-25 /HPF (0-1) H Urine WBC 11-25 /HPF (0-1) H Urine Squamous Epithelial Cells RARE /HPF (0-2) Urine Bacteria FEW /HPF (None Seen) White Blood Count 8.1 K/uL (4.8-10.8) Red Blood Count 3.81 MIL/uL (4.00-5.50) L Hemoglobin 12.1 g/dL (12.0-16.0) Hematocrit 36.5 % (36-48) Mean Corpuscular Volume 95.8 fL (79-99) Mean Corpuscular Hemoglobin 31.8 pg (27.0-33.0) Mean Corpuscular Hemoglobin Concent 33.2 g/dL (32.0-36.0) Red Cell Distribution Width 12.5 % (11.0-15.5) Platelet Count 193 K/uL (130-400) Mean Platelet Volume 8.9 fL (7.5-10.5) Immature Granulocyte % (Auto) 0.6 % (0-1) Neutrophils (%) (Auto) 72.7 % (40.0-77.0) Lymphocytes (%) (Auto) 16.6 % (21.0-51.0) L Monocytes (%) (Auto) 7.6 % (3.0-13.0) Eosinophils (%) (Auto) 2.3 % (0.0-8.0) Basophils (%) (Auto) 0.2 % (0.0-5.0) Neutrophils # (Auto) 5.9 K/uL (1.8-7.7) Lymphocytes # (Auto) 1.4 K/uL (1.0-4.8) Monocytes # (Auto) 0.6 K/uL (0.1-1.0) Eosinophils # (Auto) 0.19 K/uL (0.00-0.70) Basophils # (Auto) 0.02 K/uL (0.00-0.20) Absolute Immature Granulocyte (auto 0.05 K/uL (0-1) Nucleated Red Blood Cells 0.0 % (0.0-0.19) Sodium Level 141 mmol/L (136-145) Potassium Level 3.8 mmol/L (3.5-5.1) Chloride Level 107 mmol/L (101-111) Carbon Dioxide Level 27 mmol/L (21-32) Blood Urea Nitrogen 27 mg/dL (7-18) H Creatinine 1.0 mg/dL (0.5-1.0) Glomerular Filtration Rate Calc 60 mL/min (>90) Random Glucose 112 mg/dL (70-105) H Total Calcium 8.4 mg/dL (8.5-10.1) L Total Bilirubin 0.5 mg/dL (0.2-1.0) Aspartate Amino Transf (AST/SGOT) 25 U/L (10-37) Alanine Aminotransferase (ALT/SGPT) 42 U/L (12-78) Alkaline Phosphatase 55 U/L (50-136) Total Protein 6.6 g/dL (6.0-8.3) Albumin 3.3 g/dL (3.5-5.0) L Amylase Level 15 U/L (25-115) L Lipase 7 U/L (16-77) L MDM Given that the pain has resolved and that patient's abdominal exam was quite benign. I just get a UA and a KUB and if those are all normal discharge the patient. Patient's UA KUB CBC and chemistry panel are all normal. Patient was relieved in his happy to go home. ED Course Orders Procedure Category Date Status Time Vital Signs Per CPOE 03/31/25 Transmitted Routine 23:38 Saline Lock Iv CPOE 03/31/25 Transmitted 23:38 Cbc With Differential LAB 03/31/25 Complete 23:38 Comprehensive LAB 03/31/25 Complete Metabolic Panel 23:38 Lipase LAB 03/31/25 Complete 23:38 Amylase LAB 03/31/25 Complete 23:38 Urinalysis Profile LAB 03/31/25 Complete 23:38 Culture Urine ARIANE 04/01/25 In Process 00:13 Abd 1vw RAD 04/01/25 Taken 01:13 Vital Signs Date Time Temp Pulse Resp B/P (MAP) Pulse Ox O2 Delivery O2 Flow Rate FiO2 04/01/25 00:00 98.8 79 18 157/73 98 Room Air* 0 21 03/31/25 23:40 98.1 79 18 170/87 98 Room Air 0 DX & DISP Disposition: Discharge Departure Impression: Primary Impression: Abdominal cramping Condition: Stable Additional Instructions: Your laboratory studies and x-rays are all normal. I think your pain was maybe a nonspecific gas pain or passage of stool. If you have similar symptoms and they are associated with fever or excruciating abdominal pain please come back. Referrals: NEVIN RAYO MD (PCP) WALT DISLA MD Apr 01, 2025 01:34
[2025-04-01 02:51] VITALS: BP 107/55; PULSE 68; RESP 18; TEMP 98.2; O2SAT 98
--- NOTE | 2025-04-01 08:50 | HMCIMG ---
Exam Type: ABD 1VW Clinical Information: pain Comparison: None Findings: Abdomen demonstrates no evidence of pathologic calcification or soft tissue mass. There are no radiopacities to suggest calculous disease. The intestinal gas pattern is within normal limits without evidence of dilatation to suggest obstruction or adynamic ileus. The bony structures are unremarkable. Postoperative changes lower lumbar spine. IMPRESSION: Normal abdomen.
== END 2025-04-01 02:52 | disposition home or self-care (01) ==
LOC: EDH 23:36
DX: R10.11 Right upper quadrant pain (principal); R10.32 Left lower quadrant pain; E11.9 Type 2 diabetes mellitus without complications; I10 Essential (primary) hypertension; Z79.899 Other long term (current) drug therapy; Z87.442 Personal history of urinary calculi
CPT/HCPCS: 36415; 74018; 80053; 81001; 82150; 83690; 85025; 87086; 99285

== ENCOUNTER → 2025-05-29 | Outpatient (CLI) | payer MEDICARE ==
--- NOTE | 2025-05-29 17:18 | HMCIMG ---
EXAM: CT Lumbar Spine Without Intravenous Contrast CLINICAL HISTORY: 69-year-old female with radiculopathy TECHNIQUE: Axial computed tomography images of the lumbar spine without intravenous contrast. Sagittal and coronal reformations performed. Dose reduction technique was used including one or more of the following: automated exposure control, adjustment of mA and kV according to patient size, and/or iterative reconstruction. CONTRAST: Without COMPARISON: XR Lumbar Spine 08/04/2019 FINDINGS: BONES: No acute fracture or focal osseous lesion. Bony alignment is anatomic. Fixation hardware between L4-L5 with posterior wire loop seen, similar to prior XR Lumbar Spine 08/04/2019. DISCS / DEGENERATIVE CHANGES: No significant disc or facet degeneration. No significant central canal or neural foraminal stenosis. SOFT TISSUES: No prevertebral soft tissue swelling. Postsurgical changes of loops of small bowel in the left lower quadrant. VASCULATURE: Atherosclerotic changes in the aortoiliac bifurcation. KIDNEYS, URETERS, AND BLADDER: Multiple right renal pelvis stones. Mid pole left renal cyst found, follow up with ultrasound. IMPRESSION: 1. No acute lumbar spine fracture or dislocation. 2. Fixation hardware between L4-L5 with posterior wire loop, similar to prior XR Lumbar Spine 08/04/2019. /[place]
== END | disposition home or self-care (01) ==
LOC: RAH 13:48
PROVIDERS: ATTEND Internal Medicine
DX: M54.16 Radiculopathy, lumbar region (principal); M96.1 Postlaminectomy syndrome, not elsewhere classified; N28.1 Cyst of kidney, acquired; I70.0 Atherosclerosis of aorta; Z98.890 Other specified postprocedural states
CPT/HCPCS: 72131

== ENCOUNTER 2025-08-05 04:17 | Emergency (ER) | payer MEDICARE ==
[~2025-08-05] VITALS: Ht 149.9 cm; Wt 43.5 kg
[2025-08-05 04:18] VITALS: TEMP 96.3
--- NOTE | 2025-08-05 04:40 | ERN ---
ED Note History of Present Illness Stated Complaint: RT FLANK PAIN, KIDNEY STONE Chief Complaint: Flank Pain Time Seen by MD: 04:20 Dictation: This is a 70-year-old female who presented to the emergency room complaining of severe right flank pain. This has been going on for over a week and she presented to a hospital in [facility] where a CT scan of the abdomen pelvis revealed a kidney stone on the right side. Patient was given Flomax and asked to take along with Motrin. Apparently it today's pain was extremely bad which started around 21 00 hours. She also took Flomax and Motrin at 2:00 a.m. and due to excruciating pain she came in for evaluation and management. He denied any hematuria dysuria No fever chills or rigors. Patient stated that she passed at least 10 stones about 2 weeks ago and the stone was analyzed with 40% of it as calcium and 50% is acid? Or probably oxalate Temperature 96.3 pulse 68 respirations 18 blood pressure 128/63 with a pulse oximetry of 97% on room air Patient has chronic medical problems include diabetes mellitus type 1, hypertension, pancreatic cancer status post pancreaticoduodenectomy, bowel resection and history of back surgery also. Have multiple episodes of nephrolithiasis on the right side with history of lithotripsy, history of right ureteral stent with removal MEN type 1-parathyroid, pancreatic insulinoma and pituitary adenoma. Allergies: Coded Allergies: No Known Drug Allergies (Verified Allergy, 12/03/12) Home Meds Active Scripts Tamsulosin HCl (Flomax) 0.4 Mg Cap.er.24h, 0.4 MG PO DAILY for 7 Days, #7 CAPSULE.DR Prov:PROSPER LEWIS MD 03/03/24 Reported Medications [Fiasp To Pump] No Conflict Check, SQ AD 03/08/24 Levothyroxine Sodium (Levothyroxine) 100 Mcg Capsule, 100 MCG PO AM, CAP 03/08/24 Pantoprazole Sodium (Pantoprazole Sodium) 40 Mg Tablet.dr, 40 MG PO AM, TAB 03/08/24 Ergocalciferol (Vitamin D2) (Vitamin D2) 1,250 Mcg (84451 Unit) Capsule, 1250 MCG PO WEEKLY, CAP 03/08/24 Lipase/Protease/Amylase (Creon Dr 24,000 Units Capsule) 24-76-120K Capsule.dr, 2 EACH PO AD, CAP 03/08/24 Lipase/Protease/Amylase (Heidy Benjamin 24,000 Units Capsule) 24-76-120K Capsule., 5 EACH PO TID, CAP 03/08/24 Losartan Potassium (Losartan Potassium) 25 Mg Tablet, 25 MG PO DAILY, TAB 10/30/19 Calcitriol (Calcitriol) 0.25 Mcg Capsule, 0.25 MCG PO BID, CAP 10/30/19 Fluoxetine HCl (Fluoxetine HCl) 40 Mg Capsule, 40 MG PO DAILY, CAP 10/30/19 Past Medical History Past Medical History: Diabetes-Type II, Hypertension, Kidney Stone, Other Additional Past Medical Hx: PANCREATIC CANCER Surgical History: Hysterectomy, Other Surgical History Other: NEAR COMPLETE REMOVEAL OF PANCREASE, BOWEL RESECTION, BACK SX, RIGHT KNEE Family History: Negative Social History: Negative History: Not Applicable RN Note Reviewed/Agreed w/PFSH: Yes Review of System Dictation Constitutional: Negative for fever,chills, and weight loss Eyes: Negative for injury, pain,redness, and discharge ENT: Negative for injury,pain or swelling Cardiovascular: Negative for chest pain, palpitations, and edema Respiratory: Negative for shortness of breath, cough, and wheezing, Abdomen/GI: Negative for abdominal pain, nausea, vomiting, diarrhea, and constipation Back: Negative for injury and pain : Negative for injury, bleeding and discharge positive for severe right flank pain MS/Extremity: Negative for injury and deformity Skin: Negative for rash, and discoloration Neuro: Negative for headache, weakness, numbness, tingling, and seizure Psych: Negative for suicide ideation, homicidal ideation, and hallucinations Initial Vital Sign VS Vital Signs Date Time Temp Pulse Resp B/P (MAP) Pulse Ox O2 Delivery O2 Flow Rate FiO2 08/05/25 04:18 96.3 68 18 128/63 97 Room Air 08/05/25 05:16 0 21 Physical Exam Dictation General: awake, alert, NAD very thin emaciated frail elderly female Head/Face: Normocephalic, atraumatic multiple bruises from her cosmetic injections Eyes: PERRL, EOMI, vision at baseline ENT: oral cavity clear, TMs clear, no signs of infection Neck: Trachea midline, supple, no nuchal rigidity Cardiovascular: RRR, normal S1/S2, No MRGs, no JVD Respiratory: CTAB, no respiratory distress, No rales or wheezes Abdomen: Soft, non-tender, non-distended, normal bowel sounds, no guarding or rebound. Skin: Warm, dry, normal turgor, no rash MS/Extremity: Pulses equal, no cyanosis, neurovascular intact, FROM Neuro: COAx4, GCS 15, strength 5/5, CN 2-12 intact, normal cerebellar exam, normal gait, Psych: Normal behavior, mood, and affect normal Extremities-trace edema without any palpable cords, Homans sign is negative Results (Laboratory/Radiology) Laboratory/Radiology Laboratory Tests Test 08/05/25 04:44 White Blood Count 6.3 K/uL (4.8-10.8) Red Blood Count 3.50 MIL/uL (4.00-5.50) L Hemoglobin 11.2 g/dL (12.0-16.0) L Hematocrit 33.3 % (36-48) L Mean Corpuscular Volume 95.1 fL (79-99) Mean Corpuscular Hemoglobin 32.0 pg (27.0-33.0) Mean Corpuscular Hemoglobin Concent 33.6 g/dL (32.0-36.0) Red Cell Distribution Width 11.9 % (11.0-15.5) Platelet Count 170 K/uL (130-400) Mean Platelet Volume 8.9 fL (7.5-10.5) Immature Granulocyte % (Auto) 0.6 % (0-1) Neutrophils (%) (Auto) 65.2 % (40.0-77.0) Lymphocytes (%) (Auto) 21.5 % (21.0-51.0) Monocytes (%) (Auto) 9.9 % (3.0-13.0) Eosinophils (%) (Auto) 2.5 % (0.0-8.0) Basophils (%) (Auto) 0.3 % (0.0-5.0) Neutrophils # (Auto) 4.1 K/uL (1.8-7.7) Lymphocytes # (Auto) 1.4 K/uL (1.0-4.8) Monocytes # (Auto) 0.6 K/uL (0.1-1.0) Eosinophils # (Auto) 0.16 K/uL (0.00-0.70) Basophils # (Auto) 0.02 K/uL (0.00-0.20) Absolute Immature Granulocyte (auto 0.04 K/uL (0-1) Nucleated Red Blood Cells 0.0 % (0.0-0.19) Sodium Level 142 mmol/L (136-145) Potassium Level 4.1 mmol/L (3.5-5.1) Chloride Level 104 mmol/L (101-111) Carbon Dioxide Level 27 mmol/L (21-32) Blood Urea Nitrogen 24 mg/dL (7-18) H Creatinine 1.1 mg/dL (0.5-1.0) H Glomerular Filtration Rate Calc 53 mL/min (>90) Random Glucose 122 mg/dL (70-105) H Total Calcium 8.5 mg/dL (8.5-10.1) Labs Reviewed?: Yes ED Course ED Course Orders Procedure Category Date Status Time Vital Signs Per CPOE 08/05/25 Transmitted Routine 04:29 Strain All Urine CPOE 08/05/25 Transmitted Output From 04:29 Cbc With Differential LAB 08/05/25 Complete 04:29 Saline Lock Iv CPOE 08/05/25 Transmitted 04:29 Basic Metabolic Panel LAB 08/05/25 Complete 04:29 Urinalysis Profile LAB 08/05/25 In Process 04:29 Hydromorphone 0.5mg PHA 08/05/25 Complete Syg (Dilaudid 0.5mg 05:00 Ondansetron 4mg Inj PHA 08/05/25 Complete (Zofran 4mg Inj) 05:00 0.9%Nacl 1000ml (Ns PHA 08/05/25 Complete 1000ml) 05:00 Current Medications Medications (Trade) Dose Ordered Sig/Jaime Route PRN Reason Start Time Stop Time Status Last Admin Dose Admin Hydromorphone HCl (DiLAUDid 0.5MG INJ) 0.5 mg ONCE ONCE IVP 08/05/25 05:00 08/05/25 05:01 DC 08/05/25 05:11 Ondansetron HCl (zoFRAN 4MG INJ) 4 mg ONCE ONCE IVP 08/05/25 05:00 08/05/25 05:01 DC 08/05/25 05:09 Sodium Chloride 1,000 ml @ 0 mls/hr ONCE ONCE IV 08/05/25 05:00 08/05/25 05:01 DC 08/05/25 05:09 Vital Signs Date Time Temp Pulse Resp B/P (MAP) Pulse Ox O2 Delivery O2 Flow Rate FiO2 08/05/25 06:12 60 18 133/64 99 Room Air* 0 21 08/05/25 05:16 59 18 117/48 97 Room Air* 0 21 08/05/25 04:18 96.3 68 18 128/63 97 Room Air We will perform diagnostic labs, and administer medications according to the patient's complaint. Once the results are available, will review and personally interpreted the labs to rule out any acute life-threatening emergency the trach require immediate intervention and treatment. I will then re-evaluate the patient after treatment and diagnostic exams have return to determine whether the patient requires any further testing, can safely be discharged home or need further admission to hospital for additional treatment and evaluation. Medical Decision Making MDM Differential diagnosis: Renal colic, biliary colic, pyelonephritis, constipation, hydronephrosis/hydroureter This is a 70-year-old female who presented to the emergency room complaining of severe right flank pain. This has been going on for over a week and she presented to a hospital in [facility] where a CT scan of the abdomen pelvis revealed a kidney stone on the right side. Patient was given Flomax and asked to take along with Motrin. Apparently it today's pain was extremely bad which started around 21 00 hours. She also took Flomax and Motrin at 2:00 a.m. and due to excruciating pain she came in for evaluation and management. He denied any hematuria dysuria No fever chills or rigors. Temperature 96.3 pulse 68 respirations 18 blood pressure 128/63 with a pulse oximetry of 97% on room air Patient has chronic medical problems include diabetes mellitus type 2, hypertension, pancreatic cancer status post pancreatectomy, bowel resection and history of back surgery also. Have multiple episodes of nephrolithiasis 6:00 a.m. labs reviewed CBC is with a normal limits BNP 7 revealed a BUN and creatinine of 24 and 1.1. Empiric pain management and assess response. Patient was be had a CT abdomen and pelvis renal protocol and she is awaiting results. I updated her that during this visit I would focus on pain control and not repeat the imaging studies and she was agreeable 6:50 a.m. patient admits to feeling much better pain is resolved Rationale: Tests considered and ordered secondary to shared decision making include: Previous outside records reviewed: Old ER visits. Risk of complication and/or morbidity or mortality of patient management: None Medications-Per medication reconciliation Need for hospitalization: Patient does not meet criteria for hospitalization. Need for emergency major/minor surgery: No There are no social concerns with this patient. Prescription drug management Prescriptions will include symptomatic care Patient's prior external medical records from other ER visits were reviewed by me as indicated. Prior testing and results from previous visits were reviewed. Prior tests were taken into account with medical decision making and resource u tilization, independent historian/historians were used to obtain complete medical history. I independently interpreted the test that were performed, results were reviewed by me and considered findings on radiology if ordered. Medical management and examination interpretation discussions were had by me with other qualified healthcare professionals as indicated for the patient's ca re. Problem List Problem List: (1) Nephrolithiasis (2) Renal colic on right side DX & DISP Disposition: Discharge Departure Impression: Primary Impression: Renal colic on right side Additional Impression: Nephrolithiasis Condition: Stable Additional Instructions: Patient and the caregiver have been informed of all the diagnostic tests and the imaging conducted during the today's visit to the emergency room and has verbalized understanding of the results I have personally reviewed and interpreted all diagnostic exams performed here in the ER today as well as the vital signs documented by the nursing staff. The patient is now being discharged to home and should follow up with the primary care physician or the specialist as directed by the ER staff. Referrals: NEVIN RAYO MD (PCP) MARCUS SONI MD Aug 05, 2025 04:40
[2025-08-05 04:50] LABS: IMMATURE GRANULOCYTE ABSOLUTE 0.04 K/uL (0-1); NUCLEATED RED BLOOD CELLS 0.0 % (0.0-0.19); PLATELET COUNT (AUTO) 170 K/uL (130-400); RED BLOOD CELL COUNT(AUTO) 3.50 MIL/uL (4.00-5.50); RED CELL DISTRIBUTION WIDTH 11.9 % (11.0-15.5); WHITE BLOOD COUNT (AUTO) 6.3 K/uL (4.8-10.8)
[2025-08-05 04:58] LABS: CREATININE 1.1 mg/dL (0.5-1.0); GLOMERULAR FILTR. RATE CALC 53.0 mL/min (>90); GLUCOSE,RANDOM 122.0 mg/dL (70-105); SODIUM SERUM 142.0 mmol/L (136-145); UREA NITROGEN, BLOOD 24.0 mg/dL (7-18)
[2025-08-05] MEDS: 0.9%NACL 1000ML 1,000 ML IV ONE (05:09)
[2025-08-05 06:12] VITALS: BP 133/64; PULSE 60; RESP 18; O2SAT 99
[2025-08-05 06:45] LABS: APPEARANCE,URINE CLEAR (CLEAR); GLUCOSE, URINE (UA) NEGATIVE (NEGATIVE); LEUKOCYTE ESTERASE ,URINE NEGATIVE Leu/uL (NEGATIVE); NITRATE,URINE NEGATIVE (NEGATIVE); OCCULT BLOOD,URINE LARGE (NEGATIVE)
[2025-08-05 06:58] LABS: ADD UA MICROSCOPIC YES
== END 2025-08-05 06:56 | disposition home or self-care (01) ==
LOC: EDH 04:17
DX: N20.0 Calculus of kidney (principal); E10.9 Type 1 diabetes mellitus without complications; I10 Essential (primary) hypertension; Z79.899 Other long term (current) drug therapy; Z85.07 Personal history of malignant neoplasm of pancreas; Z87.442 Personal history of urinary calculi; Z90.710 Acquired absence of both cervix and uterus
CPT/HCPCS: 99284; 96374; 96361; 96375; 80048; 85025; 87086; 81001; 36415; J7030; J2405; J1171

== ENCOUNTER 2025-08-15 20:23 | Emergency (ER) | payer MEDICARE ==
[~2025-08-15] VITALS: Ht 149.9 cm; Wt 43.5 kg
--- NOTE | 2025-08-15 20:58 | ERN ---
ED Note History of Present Illness Stated Complaint: PAIN TO LEFT HAND, FINGER, LEFT ANKLE AFTER FALL Chief Complaint: Mechanical Fall Time Seen by MD: 20:27 Dictation: Patient is a 70-year-old female who came to the ER after a fall, she said she slipped and fallen her. Patient has pain on her 5th finger. Denies hitting her head, denies back pain, denies knee pain, denies with pain. No loss of co nsciousness. Stated there was a mechanical fall. Allergies: Coded Allergies: No Known Drug Allergies (Verified Allergy, 12/03/12) Home Meds Active Scripts Tamsulosin HCl (Flomax) 0.4 Mg Cap.er.24h, 0.4 MG PO DAILY for 7 Days, #7 CAPSULE.DR Prov:PROSPER LEWIS MD 03/03/24 Reported Medications [Fiasp To Pump] No Conflict Check, SQ AD 03/08/24 Levothyroxine Sodium (Levothyroxine) 100 Mcg Capsule, 100 MCG PO AM, CAP 03/08/24 Pantoprazole Sodium (Pantoprazole Sodium) 40 Mg Tablet.dr, 40 MG PO AM, TAB 03/08/24 Ergocalciferol (Vitamin D2) (Vitamin D2) 1,250 Mcg (06704 Unit) Capsule, 1250 MCG PO WEEKLY, CAP 03/08/24 Lipase/Protease/Amylase (Heidy Benjamin 24,000 Units Capsule) 24-76-120K Capsule.dr, 2 EACH PO AD, CAP 03/08/24 Lipase/Protease/Amylase (Heidy Benjamin 24,000 Units Capsule) 24-76-120K Capsule.dr, 5 EACH PO TID, CAP 03/08/24 Losartan Potassium (Losartan Potassium) 25 Mg Tablet, 25 MG PO DAILY, TAB 10/30/19 Calcitriol (Calcitriol) 0.25 Mcg Capsule, 0.25 MCG PO BID, CAP 10/30/19 Fluoxetine HCl (Fluoxetine HCl) 40 Mg Capsule, 40 MG PO DAILY, CAP 10/30/19 Past Medical History Past Medical History: Diabetes-Type I, Hypertension Additional Past Medical Hx: PANCREATIC CANCER Surgical History: Other Surgical History Other: WHIPPLE Family History: Negative Social History: Negative History: Not Applicable Review of System Dictation NEGATIVE EXCEPT PER HPI Constitutional: Negative for fever,chills, and weight loss Eyes: Negative for injury, pain,redness, and discharge ENT: Negative for injury,pain or swelling Cardiovascular: denies chest pain, palpitations, and edema Respiratory: Negative for shortness of breath, cough, and wheezing, Abdomen/GI: Negative for abdominal pain, nausea, vomiting, diarrhea, and constipation Back: Negative for injury and pain : Negative for injury, bleeding and discharge MS/Extremity: Left 5th finger pain Skin: Negative for rash, and discoloration Neuro: Negative for headache, weakness, numbness, tingling, and seizure Psych: Negative for suicide ideation, homicidal ideation, and hallucinations Initial Vital Sign VS Vital Signs Date Time Temp Pulse Resp B/P (MAP) Pulse Ox O2 Delivery O2 Flow Rate FiO2 08/15/25 20:25 98.2 71 20 144/74 98 Room Air 08/15/25 20:36 0 21 Physical Exam Dictation General: awake, alert, NAD Head/Face: Normocephalic, atraumatic Eyes: PERRL, EOMI, vision at baseline ENT: oral cavity clear, TMs clear, no signs of infection Neck: Trachea midline, supple, no nuchal rigidity Cardiovascular: RRR, normal S1/S2, No MRGs, no JVD Respiratory: CTAB, no respiratory distress, No rales or wheezes Abdomen: Soft , no tender Skin: Warm, dry, normal turgor, no rash MS/Extremity: Pulses equal, no cyanosis, neurovascular intact, left hand remarkable for decreased range of motion on adduction of the 5th finger. Neuro: COAx4, GCS 15, strength 5/5, CN 2-12 intact, normal cerebellar exam, normal gait, Psych: Normal behavior, mood, and affect normal ED Course ED Course Orders Procedure Category Date Status Time Hand 3+Vws Lt RAD 08/15/25 Resulted 20:41 Acetaminophen 500mg PHA 08/15/25 Complete Tab (Tylenol 500mg T 21:00 Ibuprofen 600 Mg PHA 08/15/25 Complete Tablet (Motrin) 21:00 Current Medications Medications (Trade) Dose Ordered Sig/Jaime Route PRN Reason Start Time Stop Time Status Last Admin Dose Admin Acetaminophen (TYLenol 500MG TAB) 500 mg ONCE ONCE PO 08/15/25 21:00 08/15/25 21:01 DC 08/15/25 20:55 Ibuprofen (moTRIN) 600 mg ONCE ONCE PO 08/15/25 21:00 08/15/25 21:01 DC 10/22/25 20:56 Vital Signs Date Time Temp Pulse Resp B/P (MAP) Pulse Ox O2 Delivery O2 Flow Rate FiO2 08/15/25 20:36 98.6 82 18 142/74 98 Room Air* 0 21 08/15/25 20:25 98.2 71 20 144/74 98 Room Air Medical Decision Making MDM Mechanical fall Left 5th finger fracture Left finger dislocation We will order x-ray of left hand. REASON: S/P FALL ORDERING PHYSICIAN: CARLOS PROCTOR MD PROCEDURE: HAND 3V LT - HAND 3+VWS LT Comparison: None Hand series Findings: Anatomic alignment is maintained. There is no acute fracture or dislocation. The soft tissues are unremarkable. There are no erosive changes seen. Narrowing of the joint space is noted first carpometacarpal joint which suggest arthritis. Similar changes are also seen at the interphalangeal joints of all fingers. Impression: No acute fracture or dislocation. Degenerative changes noted at the wrist and fingers. DX & DISP Disposition: Discharge Departure Impression: Primary Impression: Fall Additional Impression: Pain of finger of left hand Condition: Stable Scripts Acetaminophen (Tylenol) 500 Mg Tab 1 TAB PO Q6HPRN PRN for pain or fever for 15 Days, #15 TAB 0 Refills Prov: CARLOS PROCTOR MD 08/15/25 Referrals: NEVIN RAYO MD (PCP) CARLOS PROCTOR MD Aug 15, 2025 20:58
--- NOTE | 2025-08-15 21:42 | HMCIMG ---
Comparison: None Hand series Findings: Anatomic alignment is maintained. There is no acute fracture or dislocation. The soft tissues are unremarkable. There are no erosive changes seen. Narrowing of the joint space is noted first carpometacarpal joint which suggest arthritis. Similar changes are also seen at the interphalangeal joints of all fingers. Impression: No acute fracture or dislocation. Degenerative changes noted at the wrist and fingers. /[place]
[2025-08-15] MEDS ORDERED: ACET-66 PO (21:58)
[2025-08-15 22:21] VITALS: BP 128/68; PULSE 80; RESP 20; TEMP 98.4; O2SAT 99
== END 2025-08-15 22:20 | disposition home or self-care (01) ==
LOC: EDH 20:23
DX: M79.642 Pain in left hand (principal); M79.645 Pain in left finger(s); I10 Essential (primary) hypertension; E10.9 Type 1 diabetes mellitus without complications; Z79.899 Other long term (current) drug therapy; Z85.07 Personal history of malignant neoplasm of pancreas; Z90.411 Acquired partial absence of pancreas; W18.39XA Other fall on same level, initial encounter; Y93.89 Activity, other specified; Y92.89 Other specified places as the place of occurrence of the external cause; Y99.8 Other external cause status
CPT/HCPCS: 73130; 96361; 96374; 96375; 99284

== ENCOUNTER 2025-08-29 04:16 | Emergency (ER) | payer MEDICARE ==
[~2025-08-29] VITALS: Ht 149.9 cm; Wt 43.1 kg
[~2025-08-29 04:16] MED LIST changes: +ACET-66 PO
[2025-08-29 04:35] LABS: APPEARANCE,URINE CLEAR (CLEAR); GLUCOSE, URINE (UA) NEGATIVE (NEGATIVE); LEUKOCYTE ESTERASE ,URINE NEGATIVE Leu/uL (NEGATIVE); NITRATE,URINE NEGATIVE (NEGATIVE); OCCULT BLOOD,URINE LARGE (NEGATIVE)
[2025-08-29] MEDS: FAMOTIDINE 20MG VIAL IV ONE ×2 (04:41→04:53)
[2025-08-29 04:44] LABS: IMMATURE GRANULOCYTE ABSOLUTE 0.01 K/uL (0-1); NUCLEATED RED BLOOD CELLS 0.0 % (0.0-0.19); PLATELET COUNT (AUTO) 174 K/uL (130-400); RED BLOOD CELL COUNT(AUTO) 3.94 MIL/uL (4.00-5.50); RED CELL DISTRIBUTION WIDTH 12.4 % (11.0-15.5); WHITE BLOOD COUNT (AUTO) 8.2 K/uL (4.8-10.8)
[2025-08-29 05:01] LABS: CREATININE 1.0 mg/dL (0.5-1.0); GLOMERULAR FILTR. RATE CALC 60.0 mL/min (>90); GLUCOSE,RANDOM 153.0 mg/dL (70-105); SODIUM SERUM 138.0 mmol/L (136-145); UREA NITROGEN, BLOOD 17.0 mg/dL (7-18)
--- NOTE | 2025-08-29 05:03 | EKG ---
[facility] Test Date: 2025-08-29 Test Time: 04:51:22 Pat Name: LILLY LYNNE Department: ED Room: Gender: F [employer]: [id number] : 1955 Requested By: JUAN DAVID ROBBINS Order Number: [id number] Reading MD: Earline Franco Measurements Intervals [place] Rate: 69 P: 51 CO: 121 QRS: 35 QRSD: 80 T: 20 QT: 395 QTc: 424 Interpretive Statements Sinus rhythm Compared to ECG 03/08/2024 14:17:32 No significant changes Electronically Signed On 08-30-2025 12:33:50 [employer] by Earline Franco Please click the below link to view image of tracing.
[2025-08-29 05:08] LABS: ASPARTATE AMINOTRANSFERASE 19.0 U/L (10-37); TOTAL PROTEIN, SERUM 6.9 g/dL (6.0-8.3)
[2025-08-29 05:11] LABS: INR 0.95 (0.85-1.15)
--- NOTE | 2025-08-29 06:04 | HMCIMG ---
EXAM: CT Abdomen and Pelvis Without IV contrast CLINICAL HISTORY: Abdominal pain with right ureteral calculi and hydronephrosis. TECHNIQUE: Axial computed tomography images of the abdomen and pelvis without intravenous contrast. CONTRAST: No IV contrast. COMPARISON: None provided. FINDINGS: LUNG BASES: The lung bases appear clear. No pleural effusions are seen. LIVER: Few air foci in the central intrahepatic biliary radicals. GALLBLADDER AND BILE DUCTS: The gallbladder is not visualized, questionable undistended gallbladder. No biliary ductal dilatation is evident. PANCREAS: The pancreas shows significant atrophy. SPLEEN: Unremarkable. ADRENAL GLANDS: Unremarkable. KIDNEYS, URETERS, AND BLADDER: There are few calculi in the right kidney, largest measuring 0.3 cm at upper pole and 0.3 cm at the lower pole. There are two hyperdense calculi measuring 0.4 and 0.5 cm in the right distal ureter, lying 1 cm proximal to the right vesicoureteric junction causing upstream moderate hydronephrosis. The left kidney appears within normal limits. There is no left hydronephrosis or hydroureter. No urinary calculi are seen in the left ureter or bladder. STOMACH AND BOWEL: Unremarkable appearance of the stomach and bowel. No evidence of bowel obstruction. No evidence suggesting enteritis or colitis. APPENDIX: No evidence of acute appendicitis on CT examination. PERITONEUM: No free fluid. No free air. LYMPH NODES: No lymphadenopathy is evident. REPRODUCTIVE: Unremarkable as visualized. VASCULATURE: Atherosclerotic calcifications in the aorta. No evidence of abdominal aortic aneurysm. BONES: Postoperative changes in the L4 and L5 vertebrae. No aggressive appearing osseous lesion. No acute osseous pathology evident. IMPRESSION: Moderate right hydronephrosis secondary to two obstructing distal ureteral calculi measuring 0.4 and 0.5 cm. Multiple right renal calculi, largest 0.3 cm. Pneumobilia. /[place]
--- NOTE | 2025-08-29 06:12 | ERN ---
General Chief Complaint: Abdominal Pain Stated Complaint: C/O RLQ PAIN RADIATING TO BACK W/ N X V Time Seen by MD: 04:27 History of Present Illness Initial Comments 71-year-old female came in for abdominal pain and flank pain. Allergies: Coded Allergies: No Known Drug Allergies (Verified Allergy, 12/03/12) Home Meds Active Scripts Acetaminophen (Tylenol) 500 Mg Tab, 1 TAB PO Q6HPRN PRN for pain or fever for 15 Days, #15 TAB 0 Refills Prov:CARLOS PROCTOR MD 08/15/25 Tamsulosin HCl (Flomax) 0.4 Mg Cap.er.24h, 0.4 MG PO DAILY for 7 Days, #7 CAPSULE. Prov:PROSPER LEWIS MD 03/03/24 Reported Medications [Fiasp To Pump] No Conflict Check, SQ AD 03/08/24 Levothyroxine Sodium (Levothyroxine) 100 Mcg Capsule, 100 MCG PO AM, CAP 03/08/24 Pantoprazole Sodium (Pantoprazole Sodium) 40 Mg Tablet.dr, 40 MG PO AM, TAB 03/08/24 Ergocalciferol (Vitamin D2) (Vitamin D2) 1,250 Mcg (76675 Unit) Capsule, 1250 MCG PO WEEKLY, CAP 03/08/24 Lipase/Protease/Amylase (Heidy Benjamin 24,000 Units Capsule) 24-76-120K Capsule.dr, 2 EACH PO AD, CAP 03/08/24 Lipase/Protease/Amylase (Heidy Benjamin 24,000 Units Capsule) 24-76-120K Capsule.dr, 5 EACH PO TID, CAP 03/08/24 Losartan Potassium (Losartan Potassium) 25 Mg Tablet, 25 MG PO DAILY, TAB 10/30/19 Calcitriol (Calcitriol) 0.25 Mcg Capsule, 0.25 MCG PO BID, CAP 10/30/19 Fluoxetine HCl (Fluoxetine HCl) 40 Mg Capsule, 40 MG PO DAILY, CAP 10/30/19 Past Medical History Past Medical History: Diabetes-Type II, Hypertension, Other Medical History Other: HX OF KIDNEY STONES Past Surgical History: Other Surgical History Other: WHIPPLE; Family History Family History: Negative Social History Social History: Negative Female( History) History: Not Applicable ROS Dictation Abdominal pain Physical Exam General Appearance: (+) no apparent distress, (+) apparent distress Orientation: (+) alert, (+) oriented x 3 Respiratory: (+) chest non-tender, (+) lungs clear Heart: (+) regular, (+) no gallop Gastrointestinal: (+) soft, (+) non-tender, (+) no organomegaly, (+) bowel sound present Results Laboratory and Microbiology Lab and Micro Result Laboratory Tests Test 08/29/25 04:26 08/29/25 04:36 Urine Color LIGHT-YELLOW (YELLOW) Urine Appearance CLEAR (CLEAR) Urine pH 5.5 (5.0-8.0) Urine Specific [place] 1.017 (1.001-1.031) Urine Protein NEGATIVE mg/dL (NEGATIVE) Urine Glucose (UA) NEGATIVE mg/dL (NEGATIVE) Urine Ketones NEGATIVE mg/dL (NEGATIVE) Urine Occult Blood LARGE (NEGATIVE) H Urine Nitrate NEGATIVE (NEGATIVE) Urine Bilirubin NEGATIVE mg/dL (NEGATIVE) Urine Urobilinogen 0.2 mg/dL (0.2-1.0) Urine Leukocyte Esterase NEGATIVE [place]/uL Urine RBC TNTC /HPF (0-1) H Urine WBC 2-5 /HPF (0-1) H Urine Bacteria RARE /HPF (None Seen) White Blood Count 8.2 K/uL (4.8-10.8) Red Blood Count 3.94 MIL/uL (4.00-5.50) L Hemoglobin 12.5 g/dL (12.0-16.0) Hematocrit 38.2 % (36-48) Mean Corpuscular Volume 97.0 fL (79-99) Mean Corpuscular Hemoglobin 31.7 pg (27.0-33.0) Mean Corpuscular Hemoglobin Concent 32.7 g/dL (32.0-36.0) Red Cell Distribution Width 12.4 % (11.0-15.5) Platelet Count 174 K/uL (130-400) Mean Platelet Volume 9.2 fL (7.5-10.5) Immature Granulocyte % (Auto) 0.1 % (0-1) Neutrophils (%) (Auto) 73.5 % (40.0-77.0) Lymphocytes (%) (Auto) 15.1 % (21.0-51.0) L Monocytes (%) (Auto) 7.8 % (3.0-13.0) Eosinophils (%) (Auto) 3.0 % (0.0-8.0) Basophils (%) (Auto) 0.5 % (0.0-5.0) Neutrophils # (Auto) 6.1 K/uL (1.8-7.7) Lymphocytes # (Auto) 1.2 K/uL (1.0-4.8) Monocytes # (Auto) 0.6 K/uL (0.1-1.0) Eosinophils # (Auto) 0.25 K/uL (0.00-0.70) Basophils # (Auto) 0.04 K/uL (0.00-0.20) Absolute Immature Granulocyte (auto 0.01 K/uL (0-1) Nucleated Red Blood Cells 0.0 % (0.0-0.19) Prothrombin Time 10.1 SEC (9.6-11.6) Prothromb Time International Ratio 0.95 (0.85-1.15) Activated Partial Thromboplast Time 25.4 SEC (26.3-35.5) L Sodium Level 138 mmol/L (136-145) Potassium Level 3.6 mmol/L (3.5-5.1) Chloride Level 103 mmol/L (101-111) Carbon Dioxide Level 26 mmol/L (21-32) Blood Urea Nitrogen 17 mg/dL (7-18) Creatinine 1.0 mg/dL (0.5-1.0) Glomerular Filtration Rate Calc 60 mL/min (>90) Random Glucose 153 mg/dL (70-105) H Lactic Acid Level 1.1 mmol/L (0.8-2.5) Total Calcium 8.9 mg/dL (8.5-10.1) Total Bilirubin 0.6 mg/dL (0.2-1.0) Direct Bilirubin 0.1 mg/dL (0.0-0.3) Aspartate Amino Transf (AST/SGOT) 19 U/L (10-37) Alanine Aminotransferase (ALT/SGPT) 28 U/L (12-78) Alkaline Phosphatase 105 U/L (50-136) Troponin I High Sensitivity 6 ng/L (4-50) Total Protein 6.9 g/dL (6.0-8.3) Albumin 3.5 g/dL (3.5-5.0) Lipase 7 U/L (16-77) L Procalcitonin < 0.05 ng/mL (0.05-0.5) L Labs Reviewed?: Yes EKG/XRAY/US/CT/MRI CT Scan Comment IMAGING REPORT Signed PATIENT: LILLY LYNNE MR#: [id number] : 1955 SEX: F AGE: 70 LOCATION: [facility] ORDER 8 STATUS: REG ER REPORT#: [id number] SERVICE 7 REASON: Abdominal pain ORDERING PHYSICIAN: JUAN DAVID ROBBINS MD PROCEDURE: ABD PEL WO - CT ABDOMEN/PELVIS W/O CONTRAST EXAM: CT Abdomen and Pelvis Without IV contrast CLINICAL HISTORY: Abdominal pain with right ureteral calculi and hydronephrosis. TECHNIQUE: Axial computed tomography images of the abdomen and pelvis without intravenous contrast. CONTRAST: No IV contrast. COMPARISON: None provided. FINDINGS: LUNG BASES: The lung bases appear clear. No pleural effusions are seen. LIVER: Few air foci in the central intrahepatic biliary radicals. GALLBLADDER AND BILE DUCTS: The gallbladder is not visualized, questionable undistended gallbladder. No biliary ductal dilatation is evident. PANCREAS: The pancreas shows significant atrophy. SPLEEN: Unremarkable. ADRENAL GLANDS: Unremarkable. KIDNEYS, URETERS, AND BLADDER: There are few calculi in the right kidney, largest measuring 0.3 cm at upper pole and 0.3 cm at the lower pole. There are two hyperdense calculi measuring 0.4 and 0.5 cm in the right distal ureter, lying 1 cm proximal to the right vesicoureteric junction causing upstream moderate hydronephrosis. The left kidney appears within normal limits. There is no left hydronephrosis or hydroureter. No urinary calculi are seen in the left ureter or bladder. STOMACH AND BOWEL: Unremarkable appearance of the stomach and bowel. No evidence of bowel obstruction. No evidence suggesting enteritis or colitis. APPENDIX: No evidence of acute appendicitis on CT examination. PERITONEUM: No free fluid. No free air. LYMPH NODES: No lymphadenopathy is evident. REPRODUCTIVE: Unremarkable as visualized. VASCULATURE: Atherosclerotic calcifications in the aorta. No evidence of abdominal aortic aneurysm. BONES: Postoperative changes in the L4 and L5 vertebrae. No aggressive appearing osseous lesion. No acute osseous pathology evident. IMPRESSION: Moderate right hydronephrosis secondary to two obstructing distal ureteral calculi measuring 0.4 and 0.5 cm. Multiple right renal calculi, largest 0.3 cm. Pneumobilia. /[place] DICTATED BY: LESLYE BROWN Jr., MD DATE: 08/29/25702 ELECTRONICALLY SIGNED BY: LESLYE BROWN Jr., MD DATE: 08/29/25702 [facility] MDM: Differential diagnosis:kidney stone, abdominal pain Rationale: Tests considered and ordered secondary to shared decision making include: labs, ECG and radiology Previous outside records reviewed: Old ER visits. Risk of complication and/or morbidity or mortality of patient management: None Medications-Per medication reconciliation Need for hospitalization: Patient does meet criteria for hospitalization. Need for emergency major/minor surgery: No Patient is a 70-year-old female coming in complaining of right flank pain. Patient knows that she does has a history of kidney stones was evaluated today with a CT did disclose to ureter stones. Did advise her on the findings but patient decided to leave against medical advice. She states that she wants to go home because she has a an MRI pending today. I did advise her if she changes her mind she could always come back for further evaluation and treatment. ED Course Orders Procedure Category Date Status Time 12 Lead Ekg Tracing- EKG 08/29/25 Complete Technical 04:28 Basic Metabolic Panel LAB 08/29/25 Complete 04:28 Cbc With Differential LAB 08/29/25 Complete 04:28 Hepatic Function Panel LAB 08/29/25 Complete 04:28 Lactic Acid LAB 08/29/25 Complete 04:28 Lipase LAB 08/29/25 Complete 04:28 Procalcitonin LAB 08/29/25 Complete 04:28 Pt And Ptt LAB 08/29/25 Complete 04:28 Troponin I High LAB 08/29/25 Complete Sensitivity 04:28 Urinalysis LAB 08/29/25 Complete W/Microscopic 04:28 Ct Abdomen/Pelvis W/O CT 08/29/25 Resulted Contrast 04:28 Ondansetron 4mg Inj PHA 08/29/25 Complete (Zofran 4mg Inj) 04:30 Famotidine 20mg Vial PHA 08/29/25 Complete (Pepcid 20mg Vial) 04:30 Morphine 2mg Syg PHA 08/29/25 Complete (Morphine 2mg Syg) 04:30 Ondansetron 4mg Inj PHA 08/29/25 Complete (Zofran 4mg Inj) 04:38 Famotidine 20mg Vial PHA 08/29/25 Complete (Pepcid 20mg Vial) 04:38 Ketorolac PHA 08/29/25 Complete Tromethamine 30mg/Ml 06:30 Ceftriaxone 1g Vial PHA 08/29/25 Complete (Rocephine 1g Inj) 06:30 Chest 1vw RAD 08/29/25 Resulted 06:56 0.9% Nacl 500ml PHA 08/29/25 Complete Iv.Soln (Ns 500ml 08:00 Current Medications Medications (Trade) Dose Ordered Sig/Jaime Route PRN Reason Start Time Stop Time Status Last Admin Dose Admin Ceftriaxone Sodium (ROCEphine 1G INJ) 1 gm ONCE ONCE IVPB 08/29/25 06:30 08/29/25 06:31 DC 08/29/25 06:56 Famotidine (Pepcid 20mg Vial) 20 mg ONCE ONCE IV 08/29/25 04:30 08/29/25 04:40 DC 08/29/25 04:41 Famotidine (Pepcid 20mg Vial) 20 mg STK-MED ONCE IV 08/29/25 04:38 08/29/25 04:39 DC Ketorolac Tromethamine (toRADol) 30 mg ONCE ONCE IVP 08/29/25 06:30 08/29/25 06:31 DC 08/29/25 06:57 Morphine Sulfate (morPHINE 2MG SYG) 2 mg ONCE ONCE IVP 08/29/25 04:30 08/29/25 04:40 DC 08/29/25 04:53 Ondansetron HCl (zoFRAN 4MG INJ) 4 mg ONCE ONCE IVP 08/29/25 04:30 08/29/25 04:40 DC 08/29/25 04:41 Ondansetron HCl (zoFRAN 4MG INJ) 4 mg STK-MED ONCE .ROUTE 08/29/25 04:38 08/29/25 04:38 DC Sodium Chloride 500 ml @ 0 mls/hr ONCE ONCE IV 08/29/25 08:00 08/29/25 08:01 DC Vital Signs Date Time Temp Pulse Resp B/P (MAP) Pulse Ox O2 Delivery O2 Flow Rate FiO2 08/29/25 07:40 98.8 75 15 129/87 98 Room Air* 0 21 08/29/25 04:35 98.2 71 18 165/75 98 Room Air* 0 21 08/29/25 04:18 98.1 68 20 179/69 100 Room Air DX & DISP Disposition: AMA Departure Impression: Primary Impression: Ureteral calculus Additional Impressions: Renal colic on right side, CALCULUS OF KIDNEY Condition: Against Medical Advice Additional Instructions: Decided to leave against medical advice states he has an appointment she can not miss. I did advise her if she changes her mind she could always come back for further treatment and further evaluation. Diagnosis kidney stones of the right side. Referrals: NEVIN RAYO MD (PCP) Time of Disposition: 08:40 JUAN DAVID ROBBINS MD Aug 29, 2025 06:12 PROSPER LEWIS MD Aug 29, 2025 07:34
[2025-08-29 07:40] VITALS: BP 129/87; PULSE 75; RESP 15; TEMP 98.8; O2SAT 98
[2025-08-29] MEDS ORDERED: 0.9% NACL 500ML IV.SOLN 500 ML IV ONE (08:00)
--- NOTE | 2025-08-29 08:17 | HMCIMG ---
EXAM: CR Chest, 1 View. CLINICAL HISTORY: Shortness of breath COMPARISON: None provided. FINDINGS: LUNGS: There is no mass, infiltrate, or acute pulmonary abnormality. PLEURAL SPACES: No pleural effusion or pneumothorax. MEDIASTINUM: Cardiac size and mediastinal contours within normal limits. BONES: No acute osseous abnormality. Mild S-shaped scoliosis thoracic spine. IMPRESSION: No acute cardiopulmonary pathology is evident. /[place]
--- NOTE | 2025-08-29 08:22 | NUR ---
AMA PATIENT LEFT AMA UNDER DR LEWIS, DR LEWIS AND I EXPLAINED TO PATIENT AND AT BEDSIDE ABOUT RISKS OF LEAVING AMA, PATIENT UNDERSTOOD AND SIGNED AMA FORM, I DC'D PATIENTS I WITH CATH STILL INTACT AND APPLIED 2X2 GAUZE WITH COBAN, I EXPLAINED TO PATIENT TO FOLLOW UP WITH PCP AND EXPLAINED AGAIN THE RISKS OF LEAVING AMA BASED ON HER CONDITION, PATIENT AMBULATED OUT OF ED ACCOMPANIED BY
== END 2025-08-29 08:18 | disposition left against medical advice (07) ==
LOC: EDH 04:16
DX: N13.2 Hydronephrosis with renal and ureteral calculous obstruction (principal); E11.9 Type 2 diabetes mellitus without complications; I10 Essential (primary) hypertension; Z79.01 Long term (current) use of anticoagulants; Z79.899 Other long term (current) drug therapy; Z87.442 Personal history of urinary calculi; Z90.411 Acquired partial absence of pancreas
CPT/HCPCS: 99285; 74176; 96374; 96375; 71045; 80076; 84484; 80048; 83690; 85025; 85610; 85730; 83605; 81001; 36415; 93005; 84145; J1885; J1308; J2270; J0696; J2405